=== PATIENT | male | born 1930 | race Caucasian/White ===

== ENCOUNTER 2016-06-02 19:08 | Emergency (ER) | payer OTHER ==
[~2016-06-02] VITALS: Ht 177.8 cm; Wt 70.9 kg
[~2016-06-02 19:08] MED LIST: ASPCH81 PO; GLUC10007 PO; PRAV20TA PO
[2016-06-02 19:11] VITALS: TEMP 36.5; Ht 177.8 cm; Wt 70.9 kg
--- NOTE | 2016-06-02 20:12 | EMERGENCY ROOM VISIT NOTE ---
History Report prepared by Henryibjeremías: Carmen Arrieta Under the Supervision of: Dr. Angelo Luo D.O. First contact with patient: 20:02 Chief Complaint: ABDOMINAL PAIN Stated Complaint: POSSIBLE HERNIA Nursing Triage Summary: Patient states "I had a hernia about 40 years ago and they put that mesh in it and it feels like the same thing." Patient has pain in right abdomen. History of Present Illness The patient is a 86 year old male who presents to the Emergency Room with complaints of persistent right lower quadrant abdominal pain that began about 2 hours ago. The pain radiates through the right inguinal region. The patient states that he was lifting a shovel full of coal when his pain began. He also noticed some swelling to the area. The patient has a history of a hernia repair about 30 years ago and notes that his current pain is in the same area. He states that his pain has improved significantly since it began. Denies chest pain, shortness of breath, nausea, vomiting, or other complaints. Source of History: patient Onset: 2 hours ago Position: abdomen (RLQ) Quality: other (feels like hernia) Timing: other (persistent) Associated Symptoms: No SOB, No chest pain, No nausea, No vomiting Review of Systems See HPI for pertinent positives & negatives. A total of 10 systems reviewed and were otherwise negative. Past Medical & Surgical Surgical Problems: (1) H/O hernia repair Family History No pertinent family history stated. Social History Smoking Status: Never Smoker Marital Status: Housing Status: lives with significant other Current/Historical Medications Scheduled Aspirin (Aspirin Tab-Chewable *), 81 MG PO DAILY Glucosamine Sulfate (Glucosamine), 1,500 DAILY Pravastatin (Pravachol ), 40 MG PO DAILY Physical Exam Vital Signs Date Time Temp Pulse Resp B/P Pulse Ox O2 Delivery O2 Flow Rate FiO2 06/02/16 21:46 68 16 134/71 98 Room Air 06/02/16 19:11 36.5 70 16 163/82 97 Room Air Physical Exam GENERAL: Patient is awake, alert, and in no acute distress. Patient is resting comfortably and showing no signs of anxiety EYES: The conjunctivae are clear. The pupils are round and reactive. EARS, NOSE, MOUTH AND THROAT: The nose is without any evidence of any deformity. Mucous membranes are moist tongue is midline NECK: The neck is nontender and supple. RESPIRATORY: Normal respiratory effort is noted there is no evidence of wheezing rhonchi or rales CARDIOVASCULAR: Regular rate and rhythm noted there no murmurs rubs or gallops normal S1 normal S2 GASTROINTESTINAL: The abdomen is soft. Bowel sounds are present in all quadrants. Abdomen is nontender. There was mild bulging in the right inguinal canal noted on standing but no incarcerated hernia noted. MUSCULOSKELETAL/EXTREMITIES: There is no evidence of gross deformity full range of motion is noted in the hips and shoulders SKIN: There is no obvious evidence of any rash. There are no petechiae, pallor or cyanosis noted. NEUROLOGIC: Patient is awake alert and oriented x3 strength is symmetric patellar reflexes are 2+ bilaterally Medical Decision & Procedures ER Provider Diagnostic Interpretation: CT results as stated below per my review and radiologist interpretation. CT SCAN OF THE ABDOMEN AND PELVIS WITHOUT CONTRAST CLINICAL HISTORY: Right groin pain. History of hernia. COMPARISON STUDY: No previous studies for comparison. TECHNIQUE: CT scan of the abdomen and pelvis was performed from the lung bases to the proximal femurs. Images are reviewed in the axial, sagittal, and coronal planes. IV contrast was not administered for this examination. CT DOSE: 435.40 mGy.cm FINDINGS: Lower chest: There is a hiatal hernia. There is a low-density structure within the right lateral aspect of the hernia. This either represents fluid, or a "tongue" of stomach. Liver: The unenhanced liver is normal in size, contour, and attenuation. There is no intrahepatic biliary ductal dilatation. Gallbladder: Unremarkable. Spleen: Normal in size and attenuation. Pancreas: Unremarkable. Adrenal glands: Unremarkable. Kidneys: There is a 2 mm nonobstructing left renal calculus. No right renal calculi are visualized. No ureteral or bladder calculi are visualized. Bowel: There are no transition zones indicate bowel obstruction. The appendix appears normal. There is extensive sigmoid diverticulosis. Mild wall thickening is felt to be secondary to peridiverticular muscular hypertrophy. There is no acute diverticulitis. Peritoneum: There are bilateral fat-containing inguinal hernias right larger than left Vasculature: The abdominal aorta is normal in course and caliber. Adenopathy: None. Pelvic viscera: The prostate is enlarged measuring 6.1 cm transversely. Skeletal structures: No destructive osseous lesions are seen. IMPRESSION: 1. Nonobstructing left renal calculus 2. No ureteral or bladder calculi identified 3. No evidence of bowel obstruction. No evidence of free air 4. Extensive sigmoid diverticulosis. No evidence of acute diverticulitis 5. Hiatal hernia 6. Prostatomegaly 7. Bilateral fat-containing inguinal hernias right larger than left Electronically signed by: Eren Jaffe M.D. 06/02/2016 8:53 PM Dictated Date/Time: 06/02/2016 8:46 PM Laboratory Results 06/02/16 20:30 Red Blood Count 4.54, Mean Corpuscular Volume 94.3, Mean Corpuscular Hemoglobin 32.8, Mean Corpuscular Hemoglobin Concent 34.8, Mean Platelet Volume 10.7, Neutrophils (%) (Auto) 81.7, Lymphocytes (%) (Auto) 11.0, Monocytes (%) (Auto) 6.8, Eosinophils (%) (Auto) 0.2, Basophils (%) (Auto) 0.1, Neutrophils # (Auto) 8.67, Lymphocytes # (Auto) 1.17, Monocytes # (Auto) 0.72, Eosinophils # (Auto) 0.02, Basophils # (Auto) 0.01 06/02/16 20:30 Test 06/02/16 20:30 White Blood Count 10.61 K/uL (4.8-10.8) Red Blood Count 4.54 M/uL (4.7-6.1) Hemoglobin 14.9 g/dL (14.0-18.0) Hematocrit 42.8 % (42-52) Mean Corpuscular Volume 94.3 fL (80-100) Mean Corpuscular Hemoglobin 32.8 pg (25-34) Mean Corpuscular Hemoglobin Concent 34.8 g/dl (32-36) Platelet Count 213 K/uL (130-400) Mean Platelet Volume 10.7 fL (7.4-10.4) Neutrophils (%) (Auto) 81.7 % Lymphocytes (%) (Auto) 11.0 % Monocytes (%) (Auto) 6.8 % Eosinophils (%) (Auto) 0.2 % Basophils (%) (Auto) 0.1 % Neutrophils # (Auto) 8.67 K/uL (1.4-6.5) Lymphocytes # (Auto) 1.17 K/uL (1.2-3.4) Monocytes # (Auto) 0.72 K/uL (0.11-0.59) Eosinophils # (Auto) 0.02 K/uL (0-0.5) Basophils # (Auto) 0.01 K/uL (0-0.2) RDW Standard Deviation 43.1 fL (36.4-46.3) RDW Coefficient of Variation 12.6 % (11.5-14.5) Immature Granulocyte % (Auto) 0.2 % Immature Granulocyte # (Auto) 0.02 K/uL (0.00-0.02) Urine Color YELLOW Urine Appearance CLEAR (CLEAR) Urine pH 5.0 (4.5-7.5) Urine Specific [place] 1.021 (1.000-1.030) Urine Protein NEG (NEG) Urine Glucose (UA) NEG (NEG) Urine Ketones 1+ (NEG) Urine Occult Blood NEG (NEG) Urine Nitrite NEG (NEG) Urine Bilirubin NEG (NEG) Urine Urobilinogen NEG (NEG) Urine Leukocyte Esterase NEG (NEG) Anion Gap 8.0 mmol/L (3-11) Est Creatinine Clear Calc Drug Dose 42.4 ml/min Estimated GFR () 58.1 Estimated GFR (Non- 50.1 BUN/Creatinine Ratio 12.4 (10-20) Calcium Level 8.8 mg/dl (8.5-10.1) Total Bilirubin 0.7 mg/dl (0.2-1) Direct Bilirubin 0.1 mg/dl (0-0.2) Aspartate Amino Transf (AST/SGOT) 19 U/L (15-37) Alanine Aminotransferase (ALT/SGPT) 21 U/L (12-78) Alkaline Phosphatase 67 U/L (45-117) Total Protein 7.8 gm/dl (6.4-8.2) Albumin 4.1 gm/dl (3.4-5.0) Lipase 165 U/L (73-393) Laboratory results per my review. ED Course 2005: The patient was evaluated in room B7. A complete history and physical examination were performed. 2144: Upon reevaluation, the patient is resting comfortably. I discussed the results and treatment plan with the patient. He verbalized agreement of the treatment plan. The patient was discharged home and will call Dr. Jung tomorrow. Medical Decision Prior records/ancillary studies reviewed. Triage Nursing notes reviewed. The patient's history was concerning for abdominal pain. Differential diagnosis: Etiologies such as appendicitis, diverticulitis, PUD, biliary pathology, UTI, pancreatitis, obstruction, mesenteric ischemia, aortic pathology, infections, inflammatory bowel disease, renal colic, as well as others were entertained. The patient is an 86-year-old male who presented to the emergency department for evaluation of right groin swelling. The patient had what appeared to be a sliding inguinal hernia. He has a history of surgery or per of this hernia approximately 30 years ago. The patient's CAT scan did not reveal any signs of incarcerated hernia or bowel in the hernia sac. I discussed the patient's laboratory and radiographic studies with him and his family members. He was given follow-up information for the general surgeon of his choice. He was encouraged to call the surgeon in the morning to schedule follow-up for point. He was also encouraged to rest and avoid any heavy lifting or strenuous. He was also encouraged to return to the emergency apartment immediately if symptoms change worsen or the need arises. Specifically if the hernia started to bulge and would not reduce or if he started noticing nausea vomiting high fever or redness over the hernia area. Impression Primary Impression: Right inguinal hernia Scribe Attestation The scribe's documentation has been prepared under my direction and personally reviewed by me in its entirety. I confirm that the note above accurately reflects all work, treatment, procedures, and medical decision making performed by me. Departure Information Dispostion Home / Self-Care Referrals Omero Last M.D. (PCP) Patient Instructions Hernia, My [facility] Additional Instructions Call the surgeon in the morning to schedule a follow-up appointment. Avoid any strenuous activity. Do not lift anything heavy. Return to the emergency Department immediately if symptoms change worsen or the need arises.
[2016-06-02 20:38] LABS: BASO % 0.1 %; BASO ABS # 0.01 K/uL (0-0.2); COMPLETE YES; EOS % 0.2 %; HEMATOCRIT 42.8 % (42-52); IG% 0.2 %; LYMPH ABS # 1.17 K/uL (1.2-3.4); MEAN CELL VOLUME 94.3 fL (80-100); MEAN CORPUSCULAR HEMOGLOBIN 32.8 pg (25-34); MEAN CORPUSCULAR HGB CONC 34.8 g/dl (32-36); MEAN PLATELET VOLUME 10.7 fL (7.4-10.4); MONO % 6.8 %; NEUT % 81.7 %; PLATELET COUNT 213 K/uL (130-400); RED BLOOD COUNT 4.54 M/uL (4.7-6.1); WHITE BLOOD COUNT 10.61 K/uL (4.8-10.8)
--- NOTE | 2016-06-02 20:54 | DIAGNOSTIC IMAGING REPORT ---
CT SCAN OF THE ABDOMEN AND PELVIS WITHOUT CONTRAST CLINICAL HISTORY: Right groin pain. History of hernia. COMPARISON STUDY: No previous studies for comparison. TECHNIQUE: CT scan of the abdomen and pelvis was performed from the lung bases to the proximal femurs. Images are reviewed in the axial, sagittal, and coronal planes. IV contrast was not administered for this examination. CT DOSE: 435.40 mGy.cm FINDINGS: Lower chest: There is a hiatal hernia. There is a low-density structure within the right lateral aspect of the hernia. This either represents fluid, or a "tongue" of stomach. Liver: The unenhanced liver is normal in size, contour, and attenuation. There is no intrahepatic biliary ductal dilatation. Gallbladder: Unremarkable. Spleen: Normal in size and attenuation. Pancreas: Unremarkable. Adrenal glands: Unremarkable. Kidneys: There is a 2 mm nonobstructing left renal calculus. No right renal calculi are visualized. No ureteral or bladder calculi are visualized. Bowel: There are no transition zones indicate bowel obstruction. The appendix appears normal. There is extensive sigmoid diverticulosis. Mild wall thickening is felt to be secondary to peridiverticular muscular hypertrophy. There is no acute diverticulitis. Peritoneum: There are bilateral fat-containing inguinal hernias right larger than left Vasculature: The abdominal aorta is normal in course and caliber. Adenopathy: None. Pelvic viscera: The prostate is enlarged measuring 6.1 cm transversely. Skeletal structures: No destructive osseous lesions are seen. IMPRESSION: 1. Nonobstructing left renal calculus 2. No ureteral or bladder calculi identified 3. No evidence of bowel obstruction. No evidence of free air 4. Extensive sigmoid diverticulosis. No evidence of acute diverticulitis 5. Hiatal hernia 6. Prostatomegaly 7. Bilateral fat-containing inguinal hernias right larger than left Electronically signed by: Eren Jaffe M.D. 06/02/2016 8:53 PM Dictated Date/Time: 06/02/2016 8:46 PM
[2016-06-02 21:03] LABS: URINE APPEARANCE CLEAR (CLEAR); URINE BILIRUBIN NEG (NEG); URINE COLOR YELLOW; URINE NITRITE NEG (NEG); URINE SPECIFIC GRAVITY 1.021 (1.000-1.030); UROBILINOGEN NEG (NEG)
[2016-06-02 21:06] LABS: BUN/CREATININE RATIO 12.4 (10-20); CALCIUM 8.8 mg/dl (8.5-10.1); CREATININE 1.3 mg/dl (0.60-1.40); POTASSIUM 4.4 mmol/L (3.5-5.1)
[2016-06-02 21:14] LABS: MANUAL MICROSCOPIC REQUIRED? NO; REVIEW REQ? NO
[2016-06-02 21:46] VITALS: BP 134/71; PULSE 68; O2SAT 98
[2016-07-15] MEDS ORDERED: TPRSR/25 PO (10:09)
[2016-07-15] MEDS ORDERED: CZR25 PO (10:09)
[2016-07-15] MEDS ORDERED: ATOR-22 PO (10:09)
[2016-07-29] MEDS ORDERED: HYDR-5688 PO (08:24)
== END 2016-06-02 22:11 | disposition home or self-care (01) ==
LOC: C.EDB 19:10
DX: K40.90 Unilateral inguinal hernia, without obstruction or gangrene, not specified as recurrent (principal); Z79.82 Long term (current) use of aspirin

== ENCOUNTER 2016-07-29 05:01 | Day surgery (SDC) | payer OTHER ==
[2016-07-15 10:10] VITALS: BMI 24.0
[~2016-07-29] VITALS: Ht 170.2 cm; Wt 70.9 kg
[~2016-07-29 05:01] MED LIST changes: +ATOR-22 PO; +CZR25 PO; -PRAV20TA PO; +TPRSR/25 PO
[2016-07-29 05:43] VITALS: BP 148/71; PULSE 71; TEMP 36.4; O2SAT 96; Ht 170.2 cm; Wt 70.9 kg
[2016-07-29] MEDS ORDERED: CEFAZOLIN 2000 MG/60 ML D5W IV SCH (06:00)
[2016-07-29] MEDS ORDERED: HEPARIN SOD 5000 UNIT/0.5 ML CARP SQ SCH (06:00)
[2016-07-29] MEDS ORDERED: LACTATED RINGER'S 1000ML 1,000 ML IV SCH (06:00)
[2016-07-29] MEDS ORDERED: LACTATED RINGER'S 1000ML 500 ML IV ONE (06:00)
[2016-07-29] MEDS ORDERED: BUPIVACAINE/EPINEPHRINE 0.5% MPF 1:200,000 30 ML VIAL ONE (06:41)
[2016-07-29] MEDS ORDERED: PROPOFOL IV EMULSION 10 MG/ML 20 ML VIAL IV ONE (06:50)
[2016-07-29] MEDS ORDERED: DEXAMETHASONE SOD INJ 4 MG/ML VIAL ONE (06:50)
[2016-07-29] MEDS ORDERED: FENTANYL CITRATE INJ 50 MCG/1 ML 2 ML VIAL ONE ×2 (06:50→08:09)
[2016-07-29] MEDS ORDERED: ONDANSETRON INJ 2 MG/ML 2 ML VIAL ONE (06:50)
[2016-07-29] MEDS ORDERED: LIDOCAINE HCL 2% 2 ML VIAL (20MG/ML) ONE (06:50)
[2016-07-29] MEDS ORDERED: MIDAZOLAM HCL 1 MG/ML 2ML VIAL ONE (06:50)
--- NOTE | 2016-07-29 06:57 | History and Physical ---
History & Physical Date Jul 29, 2016. Chief Complaint right inguinal hernia...symptomatic/recurrent History of Present Illness The patient is a 86 year old male with complaints of right groin pain after loading his coal stove...was seen in ER where it was reduced...no here for definitive tx Past Medical/Surgical History Surgical Problems: (1) H/O hernia repair Additional History Hepatic Disease: No Endocrine Disorder: No Kidney Disease: No Hypertension: Yes Heart Disease: Yes Bleeding Tendencies: No Infectious Diseases: No Allergies Coded Allergies: No Known Allergies (Unverified , 07/29/16) Home Medications Scheduled Aspirin (Aspirin Tab-Chewable *), 81 MG PO QAM Atorvastatin (Lipitor), 20 MG PO HS Glucosamine Sulfate (Glucosamine), 1,000 MG PO QAM Losartan Potassium (Losartan Potassium), 25 MG PO HS Metoprolol Succinate (Metoprolol Succinate ER), 12.5 MG PO QAM Physical Examination Skin: warm/dry Eyes: normal inspection, EOMI Head: normocephalic Neck: supple Respiratory/Chest: lungs clear, no respiratory distress Cardiovascular: regular rate, rhythm Abdomen / GI: + pertinent finding (large RIH...small LIH. penis/testicles normal. ) Diagnosis symptomatic large RIH. Plan of Treatment discussed risks/options. will proceed with open repair of RIH with mesh. discussed bleeding/infection/infection of mesh/dvt/pe/mi /injury to spermatic cord/chronic pain etc..answered questions. at his age and b/c it is completely asymptomatic we will forego repair of the small LIH.
[2016-07-29] MEDS ORDERED: FENTANYL CITRATE INJ 50 MCG/1 ML 2 ML VIAL IV PRN (07:30)
[2016-07-29] MEDS ORDERED: EpHEDrine SULFATE INJ 50 MG/ML AMP IV PRN (07:30)
[2016-07-29] MEDS ORDERED: ONDANSETRON INJ 2 MG/ML 2 ML VIAL IV PRN ×2 (07:30→08:45)
[2016-07-29] MEDS ORDERED: ATROPINE SULFATE 0.1 MG/ML 5ML SYR IV PRN (07:30)
[2016-07-29] MEDS ORDERED: ROCURONIUM BROMIDE 10 MG/ML 5 ML VIAL ONE (07:32)
[2016-07-29] MEDS ORDERED: NEOSTIGMINE METHYLSULFATE 5 MG/5 ML SYR ONE (07:32)
[2016-07-29] MEDS ORDERED: GLYCOPYRROLATE INJ 0.2 MG/ML VIAL ONE (07:32)
[2016-07-29] MEDS ORDERED: HYDR-5688 PO (08:24)
[2016-07-29] MEDS ORDERED: SODIUM CHLORIDE 0.9% 1000ML 1,000 ML IV SCH (08:41)
--- NOTE | 2016-07-29 08:43 | Discharge Instructions ---
Discharge Instructions Date of Service Jul 29, 2016. Admission Reason for Admission: Recurrent Right Inguinal Hernia Discharge Discharge Diagnosis / Problem: direct and indirect right inguinal hernia Discharge Goals Goal(s): Decrease discomfort, Prevent Disease Progression Activity Recommendations Activity Limitations: as noted below Lifting Limitations: no more than 10 pounds Exercise/Sports Limitations: until after follow-up appointment Shower/Bathe: tomorrow . Instructions / Follow-Up Instructions [facility] [phone] for a follow up appointment with Dr. Rodriguez in1-2 weeks or if you have any problems or questions. Current Hospital Diet Patient's current hospital diet: Discharge Diet Recommended Diet: Regular Diet Procedures Procedures Performed: Open Recurrent Right Inguinal Hernia Repair with Mesh Pending Studies Studies pending at discharge: no Medical Emergencies . Who to Call and When: Medical Emergencies: If at any time you feel your situation is an emergency, please call 911 immediately. . Non-Emergent Contact Non-Emergency issues call your: Primary Care Provider, Surgeon Call Non-Emergent contact if: temperature is above 101, wound has increased drainage, wound has increased redness, wound has increased pain . "Provider Documentation" section prepared by Jimmy Rodriguez. VTE Core Measure Inpt VTE Proph given/why not?: SCD's
[2016-07-29] MEDS ORDERED: HYDROCODONE/ACETAMOPHEN 5/325MG TAB PO PRN ×2 (08:45)
[2016-07-29] MEDS ORDERED: IBUPROFEN 600 MG TAB PO PRN (08:45)
--- NOTE | 2016-07-29 08:46 | [facility] Operative Report ---
Operative Report Operative Date Jul 29, 2016. Pre-Operative Diagnosis Recurrent Right Inguinal Hernia Post-Operative Diagnosis direct and indirect right inguinal hernia Procedure(s) Performed open repair of recurrent right inguinal hernia with plug/patch mesh Surgeon Michael Estimated Blood Loss 10ML Findings large direct and indirect right inguinal hernia. tenuous blood supply to right testicle. Specimens None per surgeon Anesthesia get Complication(s) None Disposition Recovery Room / PACU I attest to the content of the Intraoperative Record and any orders documented therein. Any exceptions are noted below.
--- NOTE | 2016-07-29 09:05 | OPERATIVE REPORT ---
DATE OF OPERATION: 07/29/2016 PREOPERATIVE DIAGNOSIS: Recurrent right inguinal hernia. POSTOPERATIVE DIAGNOSIS: Large direct and indirect recurrent right inguinal hernia. PROCEDURES: Open repair of recurrent right inguinal hernia with plug and patch mesh. SURGEON: Dr. Rodriguez. ESTIMATED BLOOD LOSS: Approximately 10 mL. COMPLICATIONS: No immediate. ANESTHESIA: General. The patient tolerated the procedure well. OPERATION AND FINDINGS: OPERATIVE NOTE: After informed consent was obtained, the patient was taken to the operating suite and placed in supine position. After successful intubation a Elliott catheter was placed and the right groin was shaved and sterilely prepped and draped in usual fashion. I made an inguinal incision several centimeters above his previous incision to try to get some virgin anatomy to work with. We carried this down through the soft tissue using electrocautery. The external oblique aponeurosis was identified and skeletonized. A small incision was made with a fresh 15 blade and Metzenbaum scissors used to extend this down through the external ring as well as for several centimeters proximally. Once in the inguinal canal the patient had evidence of a previous open repair without mesh. It appeared to be a shouldice type of repair. I was able to find the old sutures and open them to basically undue there prior repair. There was some scarring, but I was able to readily identify the anatomy. We were able to separate the cord and cord structures from surrounding tissue using primarily blunt dissection. Once I had delineated this, I was able to gently pick the cord and cord structures off the pubic bone using a blunt finger. A [place] drain was placed around them to help manipulate and identify them. Once we did this, we noticed a rather large direct defect with some bowel trying to incarcerate. It was readily reducible. We then inspected the cord and cord structures. Using small amounts of electrocautery and again primarily blunt dissection, we were able to identify a rather large chronic indirect sac. We were able to skeletonize it back to its neck and then readily dunk it back into the abdominal cavity without difficulty. It stayed reduced. Because of the large defect, I opted to use a plug and patch technique. I will note that after reducing this the cord and cord structures were rather scant. Mildly concerned about rather tenuous blood supply to the testicle nonetheless really not much could be done about it. I was able to palpate the cord and cord structures and was able to feel a pulse in the cord structures, although was rather faint. We did place a polypropylene plug into the large defect and secured it to surrounding musculature using 0 Ethibond. We then used a mendez holed polypropylene mesh as an onlay. We secured it distally to Kavin's ligament, laterally along the shelving portion of Poupart's ligament and medially along the midline musculature. The "arms" of the mesh were wrapped around behind the cord structures and secured to underlying muscle as well. There was no impingement on the cord structures. We did thoroughly irrigate the cavity. There was adequate hemostasis. I did use some Marcaine around the edges of the mesh for postoperative analgesia. At the end of the procedure, there was adequate hemostasis. We then closed the external oblique aponeurosis with 2-0 Vicryl in a running fashion. Soft tissue was irrigated and skin was irrigated and the wound was closed using 3-0 Vicryl and 4-0 Monocryl. Some additional Marcaine was injected around the skin for postoperative analgesia and skin glue used as a dressing. The patient was then extubated and transferred to recovery in stable condition. I attest to the content of the Intraoperative Record and any orders documented therein. Any exceptio ns are noted below.
[2016-07-29 09:25] VITALS: BP 112/56; PULSE 67; TEMP 36.4; O2SAT 99
[2016-07-29 09:55] VITALS: BP 106/52; PULSE 57; O2SAT 95
--- NOTE | 2016-07-29 10:17 | Anesthesiology Progress Note ---
Anesthesia Post Op Note Date & Time Jul 29, 2016 at 10:17 Vital Signs Pain Intensity: 0 Vital Signs Past 12 Hours Date Time Temp Pulse Resp B/P Pulse Ox O2 Delivery O2 Flow Rate FiO2 07/29/16 09:55 57 20 106/52 95 Room Air 07/29/16 09:25 36.4 67 18 112/56 99 Room Air 07/29/16 09:10 36.7 63 18 125/63 97 Nasal Cannula 3 07/29/16 09:00 68 18 124/65 100 Nasal Cannula 3 07/29/16 08:50 67 18 122/62 100 Mask 10 07/29/16 08:40 69 16 127/60 98 Mask 10 07/29/16 08:37 36.8 70 16 128/60 98 Mask 10 07/29/16 05:43 36.4 71 18 148/71 96 Room Air Notes Mental Status: alert / awake / arousable, participated in evaluation Pt Amnestic to Procedure: Yes Nausea / Vomiting: adequately controlled Pain: adequately controlled Airway Patency, RR, SpO2: stable & adequate BP & HR: stable & adequate Hydration State: stable & adequate Anesthetic Complications: no major complications apparent
[2016-07-29 10:25] VITALS: BP 109/54; PULSE 59; TEMP 36.4; O2SAT 96
== END 2016-07-29 10:45 | disposition home or self-care (01) ==
LOC: C.ACU 05:01
PROVIDERS: ATTEND Surgery
DX: K40.91 Unilateral inguinal hernia, without obstruction or gangrene, recurrent (principal); Z98.890 Other specified postprocedural states

== ENCOUNTER 2017-03-28 14:15 | Emergency (ER) | payer OTHER ==
[~2017-03-28] VITALS: Ht 172.7 cm; Wt 65.0 kg
[2017-03-28 14:19] VITALS: TEMP 36.3; Ht 172.7 cm; Wt 65.0 kg
[2017-03-28] MEDS ORDERED: ASPCH81X PO (15:21)
[2017-03-28 15:25] LABS: BASO % 0.2 %; BASO ABS # 0.02 K/uL (0-0.2); COMPLETE YES; EOS % 2.8 %; HEMATOCRIT 46.9 % (42-52); IG% 0.3 %; LYMPH % 14.9 %; LYMPH ABS # 1.31 K/uL (1.2-3.4); MEAN CELL VOLUME 95.9 fL (80-100); MEAN CORPUSCULAR HEMOGLOBIN 32.3 pg (25-34); MEAN CORPUSCULAR HGB CONC 33.7 g/dl (32-36); MEAN PLATELET VOLUME 10.2 fL (7.4-10.4); MONO % 9.7 %; NEUT % 72.1 %; PLATELET COUNT 239 K/uL (130-400); RED BLOOD COUNT 4.89 M/uL (4.7-6.1)
[2017-03-28 15:42] LABS: CALCIUM 8.7 mg/dl (8.5-10.1); CREATININE 1.28 mg/dl (0.60-1.40); POTASSIUM 4.2 mmol/L (3.5-5.1)
--- NOTE | 2017-03-28 16:14 | EMERGENCY ROOM VISIT NOTE ---
ED Visit Note First contact with patient: 14:43 CHIEF COMPLAINT: Rash HISTORY OF PRESENT ILLNESS: This 86-year-old male patient presents to the emergency department, ambulatory, with his and daughter, complaining of a rash on the bilateral lower extremities, and radiating up towards the back which started one month ago. The patient states he has seen his PCP twice now, the first time he saw the physician office clerk assistant, and has been on 2 rounds of prednisone. The patient states the prednisone has not helped his symptoms. He states the last time, he was started on a different medication, but does not recall what medication that was. He states this was discontinued approximately one week ago. The patient states the rash is itchy, but is otherwise not bothersome. There has been no pain or drainage. The rash did begin on the posterior bilateral lower extremities, and over the past week has been radiating upward, towards the back. The patient has tried all kinds of OTC creams and treatments, and states Vaseline is the only thing that significantly helps. There has been a 10 pound weight loss over the past 1 month, the patient 's daughter is concerned about cancer. The patient denies any erythema migrans rash, but his daughter would like him to be tested for Lyme disease. The patient denies fever, chills, nausea, or loss of appetite. They deny any URI symptoms. No change in food, soap, detergents, or other environmental factors. No new medications. No weakness or numbness. REVIEW OF SYSTEMS: A 6 system review of systems was completed with positives and pertinent negatives listed in the HPI. ALLERGIES: None MEDICATIONS: Aspirin, Lipitor, glucosamine, losartan, metoprolol PMH: Hyperlipidemia, heart disease, hypertension SOCIAL HISTORY: The patient lives locally with family. He denies drug, alcohol , tobacco use. PHYSICAL EXAM: Vital Signs: Reviewed Nurse's notes, vital signs stable. GENERAL : This is an 86-year-old white male, in no acute distress, well-developed, well- nourished. SKIN: There is a papular rash on the posterior lower extremities radiating from the knees up to the middle of the back. This does evette with pressure and there is minimal erythema. No pustules. Capillary refill less than 2 seconds. HEAD: Normocephalic atraumatic. EARS: External auditory canals clear, tympanic membranes pearly corrales without erythema or effusion bilaterally. EYES: Pupils equal round and reactive to light and accommodation. Conjunctivae without injection, sclerae without icterus. Extraocular movements intact. NOSE: Patent, turbinates without inflammation or discharge. No sinus tenderness. MOUTH: Mucous membranes moist. Tonsils are not enlarged. Pharynx without erythema or exudate. Uvula midline. Airway patent. Tongue does not deviate. NECK: Supple without nuchal rigidity. No lymphadenopathy. No thyromegaly. Cervical spine is nontender. No JVD. HEART: Regular rate and rhythm without murmurs gallops or rubs. LUNGS: Clear to auscultation bilaterally without wheezes, rales or rhonchi. No dullness to percussion. No retractions or accessory muscle use. EMERGENCY DEPARTMENT COURSE: The patient was seen and evaluated as above. The patient's daughter was very concerned for cancer, Lyme disease, and wanted the patient have a complete workup. I discussed with her that I'm happy to order basic labs and Lyme disease studies at this time. These tests were ordered, did not reveal any abnormalities. CBC, PRP, and Lyme disease testing were all negative. The patient does have an appointment scheduled with his PCP for 2 days from now, and is established with [facility] dermatology. I encouraged patient to call the retail beauty specialist to see if he can get an appointment scheduled for the next 1-2 weeks. He states he will try. I did offer hydroxyzine to help with the itchiness, but the patient declines, and states he will try Benadryl or OTC Benadryl topical spray or cream. The case was discussed with Dr. Beyer who is in agreement with the assessment and plan. Discharge instructions were reviewed with the patient and his family at bedside. The patient was discharged home in good condition. I attest that I have personally reviewed the patient's current medication list. Patient was found to have normal blood pressure on screening and does not require follow-up. DIFFERENTIAL DIAGNOSIS: Dermatitis, Lyme disease, malignancy, hepatic disease, viral exanthem, scabies, bed bugs, candidiasis, and others DIAGNOSIS: Dermatitis Problem List Surgical Problems: (1) H/O hernia repair Status: Resolved Current/Historical Medications Scheduled Aspirin (Aspirin Chewable), 81 MG PO DAILY Atorvastatin (Lipitor), 20 MG PO HS Glucosamine Sulfate (Glucosamine), 1,000 MG PO QAM Losartan Potassium (Losartan Potassium), 25 MG PO HS Metoprolol Succinate (Metoprolol Succinate ER), 12.5 MG PO QAM Allergies Coded Allergies: No Known Allergies (Unverified , 03/28/17) Vital Signs Date Time Temp Pulse Resp B/P (MAP) Pulse Ox O2 Delivery O2 Flow Rate FiO2 03/28/17 16:35 75 18 106/67 99 Room Air 03/28/17 15:44 81 18 124/80 98 Room Air 03/28/17 14:19 36.3 107 16 116/77 96 Room Air Laboratory Results 03/28/17 15:09 Red Blood Count 4.89, Mean Corpuscular Volume 95.9, Mean Corpuscular Hemoglobin 32.3, Mean Corpuscular Hemoglobin Concent 33.7, Mean Platelet Volume 10.2, Neutrophils (%) (Auto) 72.1, Lymphocytes (%) (Auto) 14.9, Monocytes (%) (Auto) 9.7, Eosinophils (%) (Auto) 2.8, Basophils (%) (Auto) 0.2, Neutrophils # (Auto) 6.34, Lymphocytes # (Auto) 1.31, Monocytes # (Auto) 0.85, Eosinophils # (Auto) 0.25, Basophils # (Auto) 0.02 03/28/17 15:09 Test 03/28/17 15:09 White Blood Count 8.80 K/uL (4.8-10.8) Red Blood Count 4.89 M/uL (4.7-6.1) Hemoglobin 15.8 g/dL (14.0-18.0) Hematocrit 46.9 % (42-52) Mean Corpuscular Volume 95.9 fL (80-100) Mean Corpuscular Hemoglobin 32.3 pg (25-34) Mean Corpuscular Hemoglobin Concent 33.7 g/dl (32-36) Platelet Count 239 K/uL (130-400) Mean Platelet Volume 10.2 fL (7.4-10.4) Neutrophils (%) (Auto) 72.1 % Lymphocytes (%) (Auto) 14.9 % Monocytes (%) (Auto) 9.7 % Eosinophils (%) (Auto) 2.8 % Basophils (%) (Auto) 0.2 % Neutrophils # (Auto) 6.34 K/uL (1.4-6.5) Lymphocytes # (Auto) 1.31 K/uL (1.2-3.4) Monocytes # (Auto) 0.85 K/uL (0.11-0.59) Eosinophils # (Auto) 0.25 K/uL (0-0.5) Basophils # (Auto) 0.02 K/uL (0-0.2) RDW Standard Deviation 44.0 fL (36.4-46.3) RDW Coefficient of Variation 12.7 % (11.5-14.5) Immature Granulocyte % (Auto) 0.3 % Immature Granulocyte # (Auto) 0.03 K/uL (0.00-0.02) Erythrocyte Sedimentation Rate 8 mm/hr (0-14) Anion Gap 8.0 mmol/L (3-11) Est Creatinine Clear Calc Drug Dose 39.5 ml/min Estimated GFR () 59.2 Estimated GFR (Non- 51.1 BUN/Creatinine Ratio 14.0 (10-20) Calcium Level 8.7 mg/dl (8.5-10.1) Total Bilirubin 0.5 mg/dl (0.2-1) Aspartate Amino Transf (AST/SGOT) 20 U/L (15-37) Alanine Aminotransferase (ALT/SGPT) 24 U/L (12-78) Alkaline Phosphatase 59 U/L (45-117) Total Protein 7.5 gm/dl (6.4-8.2) Albumin 3.8 gm/dl (3.4-5.0) Globulin 3.7 gm/dl (2.5-4.0) Albumin/Globulin Ratio 1.0 (0.9-2) Lyme Disease IgG Antibody NEG (NEG) Lyme Disease IgM Antibody NEG (NEG) Departure Information Impression Primary Impression: Rash and nonspecific skin eruption Dispostion Home / Self-Care Condition GOOD Referrals Omero Last M.D. (PCP) Cara Alvarez M.D. Patient Instructions ED Dermatitis Non Specific Rash, My [facility] Additional Instructions You were seen in the emergency department today for a nonspecific skin rash. Labs did not reveal any acute infection, renal or hepatic abnormality, or joint abnormality. Lyme disease testing was negative. As discussed, I do recommend conservative treatment at this time, as you have been on steroids twice in the past month without relief of the symptoms. I do encourage you to follow-up with dermatology in the next week for further evaluation and management. Please follow up with your PCP at your regularly scheduled appointment in 2 days for recheck. You may use Benadryl or Benadryl cream to help with the itchiness. Return to the emergency department for worsening pain, fever, chills, or other concerning symptoms.
[2017-03-28 16:26] LABS: LYME DISEASE AB IGG NEG (NEG); LYME DISEASE AB IGM NEG (NEG)
[2017-03-28 16:35] VITALS: BP 106/67; PULSE 75; O2SAT 99
== END 2017-03-28 16:38 | disposition home or self-care (01) ==
LOC: C.EDB 14:16 → C.EDD 16:38
DX: R21 Rash and other nonspecific skin eruption (principal); I10 Essential (primary) hypertension; E78.5 Hyperlipidemia, unspecified; I51.9 Heart disease, unspecified; Z79.82 Long term (current) use of aspirin; Z79.899 Other long term (current) drug therapy

== ENCOUNTER 2019-11-25 13:18 | Inpatient (IN) ==
[2019-11-25] MEDS ORDERED: MoRPHine SULFATE 4 MG/ML 1 ML CARP\\VIAL IV STA (15:06)
--- NOTE | 2019-11-25 15:12 | Emergency Department Note ---
Impression & Plan SBO (small bowel obstruction), Incarcerated right inguinal hernia, Nausea ED Provider Note NAME: BHAVESH DOWD AGE: 89 SEX: M : 1930 ARRIVES VIA: Walk-In INFORMANT: [Patient][son] ED PROVIDER(S): [Ariel Adorno MD] CHIEF COMPLAINT: Possible hernia HISTORY OF PRESENT ILLNESS: The patient is an 89-year-old male presents to the ER with about 17 hours of symptoms. The patient states that yesterday evening, he noticed increased pain in the area of the right groin. He has had a small hernia in this area for some time but the area seemed larger and more painful yesterday. He rates the pain as a 2/10. The pain is constant and nothing makes the pain better or worse. The patient states that he has had no appetite but no vomiting. No real upper abdominal pain. He has not had urinary complaints. There has been no fall or trauma. No fever, chills, cough or congestion. The patient is concerned that the hernia worsened, he is concerned about a bowel blockage. He is here with his son. REVIEW OF SYSTEMS: See HPI for pertinent positives and negatives. A total of ten systems were reviewed and were otherwise negative. PMHx/PSHx: See Below SOCIAL HISTORY: See Below. PHYSICAL EXAM: GENERAL: Patient is in no acute distress. Thin and frail. HEENT: No acute trauma, normocephalic atraumatic, mucous membranes moist, no nasal congestion, no scleral icterus. NECK: No stridor, no adenopathy, no meningismus, trachea is midline. LUNGS: Clear to auscultation bilaterally, no wheeze, no rhonchi, breath sounds equal. HEART: Without murmurs gallops or rubs, regular rate and rhythm. ABDOMEN: Soft, nontender, bowel sounds positive, there is a 4 to 5 cm right inguinal mass which could be consistent with a hernia-the lesion is quite mobile , the area is tender, there is no erythema. The lesion is not reducible. No peritonitis. EXTREMITIES: No cyanosis or edema, full range of motion of all the joints without pain or difficulty, no signs for acute trauma. NEUROLOGIC: Oriented x 3, no acute motor or sensory deficits, no focal weakness. SKIN: No rash, no jaundice, no diaphoresis. DIFFERENTIAL DIAGNOSIS: Incarcerated hernia, appendicitis, bowel blockage, diverticulitis, UTI, obstruction, mesenteric ischemia, aortic pathology, inflammatory bowel disease, renal colic, PUD, pancreatitis, biliary pathology, hernia, volvulus, constipation, as well as other pathologies. EMERGENCY DEPARTMENT COURSE/PROCEDURES: MEDICAL DECISION MAKING: There is a mild leukocytosis, this could be consistent with infection or the stress of his current situation. No concerning anemia. There is a normal platelet count. No significant electrolyte abnormality or kidney failure. No worrisome liver enzyme elevation. No evidence for pancreatitis. Chest film do es not show free air or CHF. There was no pneumonia. Abdominal and pelvis CT shows a small bowel obstruction secondary to a right inguinal hernia. On exam, the patient did have a right inguinal hernia which seemed incarcerated. He was in no distress, he was not febrile. There was no peritonitis. Patient received IV saline, he was given a 500 cc bolus. He was ordered for IV morphine for pain. He received IV Zofran for nausea. The patient is currently resting comfortably. I have ordered for an NG tube to low intermittent suction. I did discuss the findings with the patient and his son. I spoke with case management. The on-call surgeon has been consulted. Past Med/Surg History Medical History Coronary artery disease (Chronic) History of aortic stenosis (Chronic) HTN (hypertension) (Chronic) Hyperlipidemia LDL goal <70 (Chronic) Parkinsons disease (Chronic) Surgical History H/O aortic valve replacement (Inactive) H/O hernia repair (Inactive) S/P aortic aneurysm repair S/P CABG x 1 (Inactive) S/P hernia repair Family History Brother Hypertension Parkinson disease Social History Smoking Status: Never smoker Hx Alcohol Use: No Hx Substance Use: No Preferred Language: [place] Communication Ability: Effective Visual Impairment: No Limitations Hearing Ability: Normal Beliefs That Will Affect Care: None marital status: Current Living Situation: Spouse current occupational status: retired Feels Safe at Home: Yes Childhood Exposure to Second-Hand Smoke: No Diet Comment: regular caffeine: Yes during the past year weight has: decreased > 10 lbs Dental Care, Regularly: No Physical Activity Frequency: 3-4 Times per Week Physical Activity Frequency Comment: walk Seatbelt Use: always Sunscreen Use: No (does not go out in the sun) Allergies Allergies Allergy/AdvReac Type Severity Reaction Status Date / Time No Known Allergies Allergy Verified 11/25/19 15:35 Home Meds Home Medications Medication Instructions Recorded Confirmed aspirin 81 mg tablet,delayed 81 mg PO DAILY 02/16/19 11/25/19 release atorvastatin 20 mg tablet 20 mg PO DAILY 02/16/19 11/25/19 losartan 25 mg tablet 25 mg PO DAILY 02/16/19 11/25/19 metoprolol succinate 25 mg 12.5 mg PO DAILY tab 02/16/19 11/25/19 tablet,extended release 24 hr Results & Data (ED) Vital Signs Vital Signs - 24 hr 11/25/19 13:26 11/25/19 15:33 11/25/19 16:00 Temperature 36.8 C Temperature Source Oral Pulse Rate 94 H 76 Pulse Rate [Apical] 78 Pulse Rate from SpO2 Sensor 218 H Respiratory Rate 16 12 19 Respiratory Effort / Characteristics Non-Labored Spontaneous Respiratory Depth Normal Respiratory Pattern Regular Blood Pressure 138/87 128/74 Blood Pressure [Left Arm] 137/80 Blood Pressure Mean 104 96 Blood Pressure Mean [Left Arm] 99 Blood Pressure Position Sitting Pulse Oximetry 97 95 94 Oxygen Delivery Method Room Air Room Air Room Air Sepsis Recent Fever Within 48 Hours No Sepsis New/Unexplained Change in Mental Status No Sepsis Action Taken by Nursing No Action Required 11/25/19 17:00 Temperature Temperature Source Pulse Rate Pulse Rate [Apical] 72 Pulse Rate from SpO2 Sensor Respiratory Rate 12 Respiratory Effort / Characteristics Respiratory Depth Respiratory Pattern Blood Pressure Blood Pressure [Left Arm] 118/72 Blood Pressure Mean Blood Pressure Mean [Left Arm] 87 Blood Pressure Position Pulse Oximetry 12 L Oxygen Delivery Method Sepsis Recent Fever Within 48 Hours Sepsis New/Unexplained Change in Mental Status Sepsis Action Taken by Long Term Medications Current Medication List: was personally reviewed by me Laboratory Data Attestation: I reviewed the patient's lab results. Result diagrams: 11/25/19 15:25 11/25/19 15:25 Lab Results 11/25/19 11/25/19 Range/Units 15:25 15:25 WBC 11.00 H (4.8-10.8) K/uL RBC 4.75 (4.7-6.1) M/uL Hgb 15.7 (14.0-18.0) g/dL Hct 45.5 (42-52) % MCV 95.8 (80-100) fL MCH 33.1 (25-34) pg MCHC 34.5 (32-36) g/dL RDW Std Deviation 45.0 (36.4-46.3) fL RDW Coeff of Alisson 13.0 (11.5-14.5) % Plt Count 239 (130-400) K/uL MPV 10.1 (7.4-10.4) fL Immature Gran % (Auto) 0.2 % Neut % (Auto) 87.8 % Lymph % (Auto) 7.8 % Mcintosh % (Auto) 4.1 % Eos % (Auto) 0.0 % Baso % (Auto) 0.1 % Neut # (Auto) 9.66 H (1.4-6.5) K/uL Lymph # (Auto) 0.86 L (1.2-3.4) K/uL Mcintosh # (Auto) 0.45 (0.11-0.59) K/uL Eos # (Auto) 0.00 (0-0.5) K/uL Baso # (Auto) 0.01 (0-0.2) K/uL Immature Gran # (Auto) 0.02 (0.00-0.02) K/uL Sodium 134 L (136-145) mmol/L Potassium 4.4 (3.5-5.1) mmol/L Chloride 97 L (98-107) mmol/L Carbon Dioxide 28 (21-32) mmol/L Anion Gap 9.0 (3-11) BUN 20 H (7-18) mg/dl Creatinine 1.03 (0.6-1.4) mg/dl Est Cr Clr Drug Dosing 37.4 ml/min Est GFR ( Amer) 75.3 Est GFR (Non-Af Amer) 65.0 BUN/Creatinine Ratio 19.3 (10-20) Glucose 105 H (70-99) mg/dl Calcium 9.1 (8.5-10.1) mg/dl Total Bilirubin 1.1 H (0.2-1) mg/dl AST 15 (15-37) U/L ALT 18 (12-78) U/L Alkaline Phosphatase 52 (45-117) U/L Total Protein 7.8 (6.4-8.2) gm/dl Albumin 4.3 (3.4-5.0) gm/dl Globulin 3.5 (2.5-4.0) gm/dl Albumin/Globulin Ratio 1.2 (0.9-2) Lipase 76 (73-393) U/L Administered Medications Ioversol (Optiray 320 100ml) 93 ml IV ONCE PRN PRN Reason: Interaction Checking Stop: 11/29/19 16:09 Last Admin: 11/25/19 16:10 Dose: 93 ml Documented by: [id number] Discontinued Medications Sodium Chloride (Nss) 500 mls @ 999 mls/hr IV .Q31M TJ Stop: 11/25/19 15:45 Last Infusion: 11/25/19 15:59 Dose: 0 mls/hr Documented by: [id number] Admin: 11/25/19 15:28 Dose: 999 mls/hr Documented by: [id number] Morphine Sulfate (Morphine Sulfate) 4 mg IV NOW STA Stop: 11/25/19 15:07 Last Admin: 11/25/19 15:29 Dose: 4 mg Documented by: [id number] Imaging Data Radiologist's Impression: SINGLE VIEW CHEST CLINICAL HISTORY: Generalized abdominal pain. FINDINGS: An AP, portable, upright chest radiograph is obtained. No prior studies are available for comparison at the time of dictation. The examination is degraded by portable technique and patient rotation. The patient is status post midline sternotomy and cardiac valve surgery. The heart is top normal for projection noting atherosclerotic calcification of the thoracic aorta. The pulmonary vasculature is noncongested. Scarring/atelectasis is seen at both lung bases. No airspace consolidation or large pleural effusion is identified. No pneumothorax is seen. The skeletal structures are osteopenic. The bony thorax is grossly intact. IMPRESSION: No active disease in the chest. CT SCAN OF THE ABDOMEN AND PELVIS WITH IV CONTRAST CLINICAL HISTORY: Right groin swelling. COMPARISON STUDY: Abdominal CT dated 06/02/2016. TECHNIQUE: Following the IV administration of 93 cc of Optiray 320, CT scan of the abdomen and pelvis is performed from the lung bases to the proximal femora. Images are reviewed in the axial, sagittal, and coronal planes. IV contrast was administered without complication. A dose lowering technique was utilized adhering to the principles of ALARA. CT DOSE: 284.39 mGy.cm FINDINGS: Lung bases: The patient is status post midline sternotomy. The heart is mildly enlarged and without pericardial effusion. There is evidence of previous mitral valve surgery. The coronary arteries are densely calcified. The lung bases are clear noting dependent atelectasis. Liver: The contrast-enhanced liver is normal in size, contour, and attenuation. There is no intrahepatic biliary ductal dilatation. The hepatic veins and portal veins are patent. Gallbladder: Unremarkable. Spleen: Normal in size and attenuation. Pancreas: Mildly atrophic and grossly unremarkable. Adrenal glands: There is nodular thickening of the adrenal glands which is similar to previous. Kidneys: The contrast enhanced kidneys demonstrate cortical atrophy and are without hydronephrosis. The kidneys enhance symmetrically. There is a 4 mm nonobstructing calculus in the upper pole of the left kidney. Abdominal vasculature: There is advanced atherosclerotic calcification and ectasia of the abdominal aorta. Bowel: The stomach and proximal small bowel loops are distended and fluid- filled. Small bowel loops measure up to 2.6 cm in diameter. The obstruction is caused by an incarcerated fluid and small bowel containing right inguinal hernia. The distal small bowel and colon are decompressed. There is no pneumatosis intestinalis or portal venous gas. There is advanced colonic diverticulosis without CT evidence of acute diverticulitis. A duodenal divertic ulum is incidentally noted. The appendix is well-visualized and normal. Peritoneum: There is trace abdominopelvic ascites. No intraperitoneal free air is seen. Lymphadenopathy: None. Pelvic viscera: The prostate gland is enlarged and heterogeneous measuring 6 cm in transverse diameter. Although decompressed, the bladder wall appears thickened and trabeculated suggesting chronic outlet obstruction. There is a bowel containing right inguinal hernia. Skeletal structures: The skeletal structures are osteopenic. There is moderate to advanced lumbosacral spondylosis. No lytic or blastic lesions are seen. Soft tissues: The patient is cachectic. IMPRESSION: 1. Findings are consistent with a small bowel obstruction secondary to an incarcerated right inguinal hernia. 2. No intraperitoneal free air is seen. There is no pneumatosis intestinalis or portal venous gas. 3. Trace abdominopelvic ascites. 4. Advanced colonic diverticulosis without CT evidence of acute diverticulitis. 5. Left-sided nephrolithiasis. 6. Additional findings as above. Blood Pressure Blood Pressure Findings: Elevated blood pressure Blood Pressure Disposition: further management by hospitalist Discharge Plan Visit Data Chief Complaint: GI Assessment Stated Complaint: PAIN BELOW BELLY BUTTON, HARD TIME MAKING BM ED Provider: Ariel Adorno Discharge Problem: SBO (small bowel obstruction), Incarcerated right inguinal hernia, Nausea Patient Disposition: Being Evaluated by Surgeon Condition: Good Forms Stand Alone Forms: [facility] [place] Prescriptions Prescriptions: No Action aspirin 81 mg tablet,delayed release (DR/EC) 81 mg PO DAILY RF: 0 atorvastatin 20 mg tablet 20 mg PO DAILY RF: 0 losartan 25 mg tablet 25 mg PO DAILY RF: 0 metoprolol succinate 25 mg tablet extended release 24 hr 12.5 mg PO DAILY RF: 0 Referrals Referrals: Fabio Melara MD [Primary Care Provider] -
[2019-11-25] MEDS ORDERED: SODIUM CHLORIDE 0.9% 500 ML IV SCH (15:15)
[2019-11-25 15:42] LABS: Basophils # (auto) 0.01 K/uL (0-0.2); Basophils % (auto) 0.1 %; Hematocrit (blood only) 45.5 % (42-52); Hemoglobin 15.7 g/dL (14.0-18.0); Immature Granulocytes # (auto) 0.02 K/uL (0.00-0.02); Immature Granulocytes % (auto) 0.2 %; Lymphocytes # (auto) 0.86 K/uL (1.2-3.4); Lymphocytes % (auto) 7.8 %; Mean Corpuscular Hemoglobin 33.1 pg (25-34); Mean Corpuscular Hgb Conc 34.5 g/dL (32-36); Mean Corpuscular Volume 95.8 fL (80-100); Mean Platelet Volume 10.1 fL (7.4-10.4); Monocytes # (auto) 0.45 K/uL (0.11-0.59); Monocytes % (auto) 4.1 %; Neutrophils # (auto) 9.66 K/uL (1.4-6.5); Neutrophils % (auto) 87.8 %; Platelet Count 239 K/uL (130-400); Red Blood Count 4.75 M/uL (4.7-6.1)
--- NOTE | 2019-11-25 15:55 | XRay Report ---
SINGLE VIEW CHEST CLINICAL HISTORY: Generalized abdominal pain. FINDINGS: An AP, portable, upright chest radiograph is obtained. No prior studies are available for c omparison at the time of dictation. The examination is degraded by portable technique and patient rot ation. The patient is status post midline sternotomy and cardiac valve surgery. The heart is top norm al for projection noting atherosclerotic calcification of the thoracic aorta. The pulmonary vasculatu re is noncongested. Scarring/atelectasis is seen at both lung bases. No airspace consolidation or lar ge pleural effusion is identified. No pneumothorax is seen. The skeletal structures are osteopenic. T he bony thorax is grossly intact. IMPRESSION: No active disease in the chest. ACT 112: Negative or not required by law. Electronically signed by: Ariel Plascencia M.D. 11/25/2019 3:53 PM
[2019-11-25 15:57] LABS: Albumin Level 4.3 gm/dl (3.4-5.0); BUN Creatinine Ratio 19.3 (10-20); Calcium 9.1 mg/dl (8.5-10.1); Creatinine Clr Calc Pharmacy 37.4 ml/min; Est GFR (African American) 75.3; Potassium 4.4 mmol/L (3.5-5.1)
[2019-11-25 16:00] LABS: Albumin Globulin Ratio 1.2 (0.9-2); Bilirubin,Total 1.1 mg/dl (0.2-1); Globulin 3.5 gm/dl (2.5-4.0); Total Protein 7.8 gm/dl (6.4-8.2)
[2019-11-25] MEDS ORDERED: IOVERSOL 100ml IV PRN (16:10)
--- NOTE | 2019-11-25 16:31 | CT Scan Report ---
CT SCAN OF THE ABDOMEN AND PELVIS WITH IV CONTRAST CLINICAL HISTORY: Right groin swelling. COMPARISON STUDY: Abdominal CT dated 06/02/2016. TECHNIQUE: Following the IV administration of 93 cc of Optiray 320, CT scan of the abdomen and pelvi s is performed from the lung bases to the proximal femora. Images are reviewed in the axial, sagittal , and coronal planes. IV contrast was administered without complication. A dose lowering technique wa s utilized adhering to the principles of ALARA. CT DOSE: 284.39 mGy.cm FINDINGS: Lung bases: The patient is status post midline sternotomy. The heart is mildly enlarged and without p ericardial effusion. There is evidence of previous mitral valve surgery. The coronary arteries are de nsely calcified. The lung bases are clear noting dependent atelectasis. Liver: The contrast-enhanced liver is normal in size, contour, and attenuation. There is no intrahepa tic biliary ductal dilatation. The hepatic veins and portal veins are patent. Gallbladder: Unremarkable. Spleen: Normal in size and attenuation. Pancreas: Mildly atrophic and grossly unremarkable. Adrenal glands: There is nodular thickening of the adrenal glands which is similar to previous. Kidneys: The contrast enhanced kidneys demonstrate cortical atrophy and are without hydronephrosis. T he kidneys enhance symmetrically. There is a 4 mm nonobstructing calculus in the upper pole of the le ft kidney. Abdominal vasculature: There is advanced atherosclerotic calcification and ectasia of the abdominal a kasi. Bowel: The stomach and proximal small bowel loops are distended and fluid-filled. Small bowel loops m easure up to 2.6 cm in diameter. The obstruction is caused by an incarcerated fluid and small bowel c ontaining right inguinal hernia. The distal small bowel and colon are decompressed. There is no pneum atosis intestinalis or portal venous gas. There is advanced colonic diverticulosis without CT evidenc e of acute diverticulitis. A duodenal diverticulum is incidentally noted. The appendix is well-visua lized and normal. Peritoneum: There is trace abdominopelvic ascites. No intraperitoneal free air is seen. Lymphadenopathy: None. Pelvic viscera: The prostate gland is enlarged and heterogeneous measuring 6 cm in transverse diamete r. Although decompressed, the bladder wall appears thickened and trabeculated suggesting chronic outl et obstruction. There is a bowel containing right inguinal hernia. Skeletal structures: The skeletal structures are osteopenic. There is moderate to advanced lumbosacra l spondylosis. No lytic or blastic lesions are seen. Soft tissues: The patient is cachectic. IMPRESSION: 1. Findings are consistent with a small bowel obstruction secondary to an incarcerated right inguinal hernia. 2. No intraperitoneal free air is seen. There is no pneumatosis intestinalis or portal venous gas. 3. Trace abdominopelvic ascites. 4. Advanced colonic diverticulosis without CT evidence of acute diverticulitis. 5. Left-sided nephrolithiasis. 6. Additional findings as above. ACT 112: Negative or not required by law. Electronically signed by: Ariel Plascencia M.D. 11/25/2019 4:30 PM
[2019-11-25] MEDS ORDERED: ONDANSETRON INJ 2 MG/ML 2 ML VIAL IV STA (16:53)
--- NOTE | 2019-11-25 17:04 | History & Physical Report ---
Date of Service November 25, 2019 Assessment & Plan (1) SBO (small bowel obstruction): I discussed his findings with him and his son. This clearly will need surgical intervention and the sooner the better. Because of his 2 prior repairs 1 of which was open with mesh I am recommending a laparoscopic approach. I will reduce the small bowel obstruction and place an intra-abdominal mesh. We discussed the risks which include bleeding, infection, infection of mesh requiring explant, injury to other organs such as bladder ureter bowel etc., DVT, PE, [place], CVA and even . Following our discussion I answered all their questions. We will proceed with laparoscopic reduction of a small bowel obstruction with repair of an incarcerated right inguinal hernia BRENDA. He will need to be admitted for post op observation following the procedure this evening. They agree to the plan and have signed the consent. (2) Incarcerated right inguinal hernia: History of Present Illness Primary Care Provider: Fabio Melraa MD 89-year-old male with a history of 2 prior right inguinal hernia repairs in the past. Last night around 10 PM he noted a large bulge in his right groin. He had some nausea with some emesis this morning. His son brought him to the ER and work-up includes a CAT scan which showed an incarcerated right inguinal hernia with associated small bowel obstruction. Patient is currently comfortable. No nausea currently. Allergies Allergy/AdvReac Type Severity Reaction Status Date / Time No Known Allergies Allergy Verified 11/25/19 15:35 Home Medications Home Medications Medication Instructions Recorded Confirmed Type aspirin 81 mg tablet,delayed 81 mg PO DAILY 02/16/19 11/25/19 History release atorvastatin 20 mg tablet 20 mg PO DAILY 02/16/19 11/25/19 History losartan 25 mg tablet 25 mg PO DAILY 02/16/19 11/25/19 History metoprolol succinate 25 mg 12.5 mg PO DAILY tab 02/16/19 11/25/19 History tablet,extended release 24 hr Past Med/Surg History Medical History Coronary artery disease (Chronic) History of aortic stenosis (Chronic) HTN (hypertension) (Chronic) Hyperlipidemia LDL goal <70 (Chronic) Parkinsons disease (Chronic) Surgical History H/O aortic valve replacement (Inactive) H/O hernia repair (Inactive) S/P aortic aneurysm repair S/P CABG x 1 (Inactive) S/P hernia repair Family History Brother Hypertension Parkinson disease Social History Smoking Status: Never smoker Hx Alcohol Use: No Hx Substance Use: No Preferred Language: Maori Communication Ability: Effective Visual Impairment: No Limitations Hearing Ability: Normal Beliefs That Will Affect Care: None marital status: Current Living Situation: Spouse current occupational status: retired Feels Safe at Home: Yes Childhood Exposure to Second-Hand Smoke: No Diet Comment: regular caffeine: Yes during the past year weight has: decreased > 10 lbs Dental Care, Regularly: No Physical Activity Frequency: 3-4 Times per Week Physical Activity Frequency Comment: walk Seatbelt Use: always Sunscreen Use: No (does not go out in the sun) Review of Systems All systems reviewed & are unremarkable except as noted in HPI & below Physical Exam Constitutional: WD/WN, vitals as above no acute distress and not ill appearing Eyes: PERRL, conjunctivae normal, anicteric sclerae EOM intact bilaterally ENMT: external ear and nose normal, oropharynx normal Ears: no hearing impairment Neck: trachea midline, no thyromegaly Respiratory: normal respiratory effort; no respiratory distress and does not use accessory muscles Cardiovascular: Rate/Rhythm: regular rate and regular rhythm Gastrointestinal (Abdomen): Soft nontender. He has a large obvious right inguinal hernia. There is bowel incarceration. It is nonreducible. Skin: no rashes, warm and dry Psychiatric: Orientation: alert, oriented x 3 and cooperative Results & Data Vital Signs (Past 12 Hours) Vital Signs Temp Pulse Pulse Resp BP BP Pulse Ox 11/25/19 16:00 76 19 128/74 94 11/25/19 15:33 78 12 137/80 95 11/25/19 13:26 36.8 C 94 H 16 138/87 97
[2019-11-25 22:39] LABS: Appearance Urine Clear (Clear); Bacteria Urine Automated Negative (Negative); Bilirubin Urine Negative (Negative); Blood Urine Trace (Negative); Color Urine Yellow; Glucose Urine UA Negative (Negative); Ketones Urine 2+ (Negative); Leukocyte Esterase Urine Negative (Negative); Nitrite Urine Negative (Negative); Protein Urine Negative (Negative); RBC Urine Automated 0-4 /hpf (0-4); Specific Gravity Urine > 1.045 (1.000-1.030); Urobilinogen Urine Negative (Negative)
[2019-11-25] MEDS ORDERED: BUPIVACAINE/EPINEPHRINE 0.25% 1:200,000 30 ML VIAL ONE (23:14)
[2019-11-25] MEDS ORDERED: ONDANSETRON INJ 2 MG/ML 2 ML VIAL IV PRN (23:45)
[2019-11-25] MEDS ORDERED: ATROPINE SULFATE 0.1 MG/ML 10ML SYR IV PRN (23:45)
[2019-11-25] MEDS ORDERED: ePHEDrine sulfate 50 MG/ML AMP IV PRN (23:45)
[2019-11-25] MEDS ORDERED: fentaNYL citrate 100 MCG/2 ML VIAL IV PRN (23:45)
--- NOTE | 2019-11-25 23:45 | Anesthesiology Consultation ---
Date of Service November 25, 2019 Assessment & Plan Chart Review Chart Review: Acceptable Risk for Surgery and Patient NOT seen in Pre Admission Testing Consults Requested none ASA [id number] Proposed Anesthesia Anesthesia Type: General Risk / Benefits Reviewed With: PT / POA / Parent / Guardian, Accepts Plan and Informed Consent Obtained Additional Comments: patient has low risk history for undiagnosed covid 19. will forgo covid time secondary to serious medical comorbidities and risk of increased anesthesia time. entire OR staff in agreement and will wear appropriate PPE. History Surgery Operation Date: 11/25/19 21:00 Proposed Procedures p Laparoscopic Inguinal Hernia Repair - Jimmy Rodriguez, Height/Weight Height: 5 ft 8 in Weight: 52.4 kg Allergies Allergy/AdvReac Type Severity Reaction Status Date / Time No Known Allergies Allergy Verified 11/25/19 15:35 Medications Home Medications Medication Instructions Recorded Confirmed Last Taken aspirin 81 mg tablet,delayed 81 mg PO DAILY 02/16/19 11/25/19 11/24/19 release atorvastatin 20 mg tablet 20 mg PO DAILY 02/16/19 11/25/19 11/24/19 losartan 25 mg tablet 25 mg PO DAILY 02/16/19 11/25/19 11/24/19 metoprolol succinate 25 mg 12.5 mg PO DAILY tab 02/16/19 11/25/19 11/24/19 tablet,extended release 24 hr Active Medications Generic Name Dose Route Start Last Admin Trade Name Freq PRN Reason Stop Dose Admin Ioversol 93 ml 11/25/19 16:10 11/25/19 16:10 Optiray 320 100ml IV 11/29/19 16:09 93 ml ONCE PRN Administration Interaction Checking NPO Date Last Intake of Fluids: 11/24/19 Time Last Intake of Fluids: 00:00 Date Last Intake of Solids: 11/24/19 Time Last Intake of Solids: 00:00 Past Medical History Medical History Coronary artery disease (Chronic) History of aortic stenosis (Chronic) HTN (hypertension) (Chronic) Hyperlipidemia LDL goal <70 (Chronic) Parkinsons disease (Chronic) Exercise / Class Metabolic Activity II 4-5 Yardwork/Stairs/Walk up hill Past Family History Family History Brother Hypertension Parkinson disease Past Surgical History Surgical History H/O aortic valve replacement (Inactive) H/O hernia repair (Inactive) S/P aortic aneurysm repair S/P CABG x 1 (Inactive) S/P hernia repair Past Anesthesia History No Hx of Anesthesia Complications and No Family Hx of Anesthesia Complications History of PONV No Hx of PONV and No Hx of Motion Sickness Social History Smoking Status: Never smoker Hx Alcohol Use: No Hx Substance Use: No Physical Exam Vital Signs Last Vital Signs Temp 36.8 C 11/25/19 13:26 Pulse 83 11/25/19 23:20 Resp 18 11/25/19 23:20 BP 135/76 11/25/19 23:20 Pulse Ox 97 11/25/19 23:20 ENMT Mouth: no dentition abnormality Thyromental Distance: > or= 3.5 Finger Breadths Mallampati Class: II Neck normal visual inspection Respiratory normal respiratory effort Auscultation: lungs clear to auscultation bilaterally Cardiovascular Rate/Rhythm: regular rate and regular rhythm Psychiatric Orientation: alert Testing Laboratory Results 11/25/19 15:25 11/25/19 15:25 Urine Color Yellow 11/25/19 21:30 Urine Appearance Clear (Clear) 11/25/19 21:30 Urine pH 5.0 (4.5-7.5) 11/25/19 21:30 Ur Specific [place] > 1.045 (1.000-1.030) H 11/25/19 21:30 Urine Protein Negative (Negative) 11/25/19 21:30 Urine Glucose (UA) Negative (Negative) 11/25/19 21:30 Urine Ketones 2+ (Negative) H 11/25/19 21:30 Urine Nitrite Negative (Negative) 11/25/19 21:30 Ur Leukocyte Esterase Negative (Negative) 11/25/19 21:30 Urine WBC (Auto) 1-5 /hpf (0-5) 11/25/19 21:30 Urine RBC (Auto) 0-4 /hpf (0-4) 11/25/19 21:30 U Hyaline Cast (Auto) 1-5 /lpf (0-5) 11/25/19 21:30 U Epithel Cells (Auto) 10-20 /lpf (0-5) H 11/25/19 21:30 Urine Bacteria (Auto) Negative (Negative) 11/25/19 21:30
[2019-11-25] MEDS ORDERED: fentaNYL citrate 100 MCG/2 ML VIAL ONE (23:52)
--- NOTE | 2019-11-26 01:01 | Operative Report ---
PG Post Operative Report Pre & Post Diagnosis Operation Date: 11/25/19 21:00 Pre-Op Diagnosis: Incarcerated right inguinal hernia, Small Bowel Obstruction Post-Op Diagnosis: Incarcerated right inguinal hernia, Small Bowel Obstruction I identified the patient and participated in the time-out.: Yes Procedure Operation Date: 11/25/19 21:00 Actual Procedures p Laparoscopic release of SBO; Right Inguinal Recurrent Hernia Repair with Mesh(Right) - Jimmy Rodriguez DO Surgeon Jimmy Rodriguez DO Italian Lecturer carole Dumont Estimated Blood Loss 5 Findings Consistent with Post-Op Diagnosis Specimens none Description of Procedure After informed consent was obtained the patient was taken to the operating room and placed in supine position. After successful intubation a Elliott catheter was placed. The abdomen was shaved and sterilely prepped and draped in usual fashion. I tried to manually reduce the hernia after induction of anesthesia but was unsuccessful. A periumbilical incision was made with an 11 blade scalpel and carried down through the soft tissue using cautery. The anterior rectus fascia was opened using cautery and two #0 Vicryl stay sutures were placed. Peritoneum was entered using blunt finger penetration a finger sweep performed. A 12 mm Prabhakar was placed and the abdomen insufflated to 18 mmHg. Laparoscope was inserted and the abdomen examined in 360 degrees. 2 left mid abdominal 5 mm trochars were placed under direct vision as well. There was a small bowel obstruction leading down into an incarcerated right inguinal hernia. It was a very tight incarceration and initially I was unable to reduce the bowel. I used the harmonic scalpel to slightly widen the hernia defect itself. With manual pressure externally and gentle traction internally we were able to reduce the small bowel obstruction. Initially the bowel was ischemic and had mild erythema as well. We allowed this to re-perfuse while we repaired the defect itself. I was able to reduce the large hernia sac and excise it using the harmonic scalpel. Next I used a piece of surgi-mesh which I rolled up and placed into the abdominal cavity through the camera port site. I unrolled such that the anti-adhesive barrier was facing the abdominal cavity. It was placed over the defect and secured laterally above the iliopubic tract as well as on the anterior abdominal wall using a pro-tacker. I also placed 2 tacks into Kavin's ligament. This allowed the mesh to lay nice and tension-free and covered the defect for several centimeters in all directions. At this point I reexamined the small 1 inch segment of ischemic small bowel. I decided to deliver it out of the camera port site so I could manually inspected. The 5 mm trochars were removed. The fascia of the camera port was slightly extended using cautery. A Yazmin clamp was then used to deliver the small bowel out onto the abdominal wall. It appeared to me the bowel would be fine. It was mostly serosal edema and there was no evidence of infarction. I did place a 3-0 silk marking stitch in case he would deteriorate we would be able to find the area more readily. I then reduced this back in the abdominal cavity and closed the fascial defect using 0 Vicryl in simple interrupted fashion. All the wounds were irrigated and closed using 4-0 Monocryl. Marcaine was injected around them for postoperative analgesia and skin glue used as a dressing. The patient was awakened extubated and transferred recovery in guarded condition. My physician pet care assistant was present for the entire case. He helped prep the patient. He helped run the camera during my procedure as well as with wound closure and dressing placement. I attest to the content of the Intraoperative Record and any orders documented therein. Any exceptions are noted below.
[2019-11-26] MEDS ORDERED: ONDANSETRON INJ 2 MG/ML 2 ML VIAL IV PRN (02:01)
[2019-11-26] MEDS ORDERED: MoRPHine SULFATE 2 MG/ML CARP IV PRN (02:01)
[2019-11-26] MEDS ORDERED: OXYCODONE HCL IR 5 MG TAB (IMMEDIATE RELEASE) PO PRN (02:01)
[2019-11-26] MEDS: LACTATED RINGER'S 1,000 ML IV SCH ×2 (02:48→15:46)
[2019-11-26] MEDS: ACETAMINOPHEN 1,000 MG/100 ML VIAL IV SCH ×3 (02:48→16:57)
--- NOTE | 2019-11-26 03:50 | Anesthesiology Progress Note ---
Date of Service November 26, 2019 Anesthesia Post Procedure Vital Signs Vital Signs: Temp Pulse Pulse Pulse Resp BP BP 11/26/19 02:45 36.7 C 100 H 14 109/67 11/26/19 02:15 36.4 C L 63 14 126/70 11/26/19 01:45 36.6 C 65 16 138/69 11/26/19 01:35 36.7 C 60 18 136/69 11/26/19 01:30 57 L 12 127/62 11/26/19 01:25 36.7 C 59 L 12 133/68 11/26/19 01:20 63 12 130/70 11/26/19 01:15 67 12 142/69 H 11/26/19 01:10 36.6 C 69 13 138/65 11/26/19 01:05 36.6 C 67 18 124/63 11/25/19 23:20 83 18 135/76 11/25/19 22:30 87 14 140/86 11/25/19 22:00 83 11 L 139/79 11/25/19 21:30 85 9 L 148/87 H 11/25/19 21:00 80 11 L 139/79 11/25/19 20:30 71 12 141/81 H 11/25/19 20:00 81 13 152/90 H 11/25/19 19:30 72 15 134/80 11/25/19 19:01 78 14 153/95 H 11/25/19 18:30 69 15 151/84 H 11/25/19 18:00 68 15 133/75 11/25/19 17:30 68 14 147/81 H 11/25/19 17:00 72 12 118/72 11/25/19 16:30 64 8 L 109/60 11/25/19 16:00 76 19 128/74 11/25/19 15:33 78 12 137/80 11/25/19 13:26 36.8 C 94 H 16 138/87 Pulse Ox 11/26/19 02:45 91 11/26/19 02:15 92 11/26/19 01:45 96 11/26/19 01:35 95 11/26/19 01:30 97 11/26/19 01:25 98 11/26/19 01:20 98 11/26/19 01:15 99 07/27/20 01:10 94 11/26/19 01:05 97 11/25/19 23:20 97 11/25/19 22:30 96 11/25/19 22:00 95 11/25/19 21:30 96 11/25/19 21:00 98 11/25/19 20:30 11/25/19 20:00 11/25/19 19:30 11/25/19 19:01 11/25/19 18:30 97 11/25/19 18:00 97 11/25/19 17:30 94 11/25/19 17:00 12 L 11/25/19 16:30 11/25/19 16:00 94 11/25/19 15:33 95 11/25/19 13:26 97 Pain Intensity Abdomen: Pain Intensity: 3 Transfer of Care Handoff Completed per policy Notes Mental Status: alert / awake / arousable Patient Amnestic to Procedure: Yes Nausea / Vomiting: adequately controlled Pain: adequately controlled Airway Patency, RR, SpO2: stable & adequate BP & HR: stable & adequate Hydration State: stable & adequate Anesthetic Complications: no major complications apparent
[2019-11-26] MEDS: ENOXAPARIN INJ 40 MG/0.4 ML SYR SQ SCH (07:56)
[2019-11-26 08:17] LABS: INR 1.1 (0.9-1.1); Prothrombin Time 11.4 Seconds (9.0-12.0)
--- NOTE | 2019-11-26 12:16 | Surgery Progress Note ---
Date of Service November 26, 2019 Assessment & Plan (1) SBO (small bowel obstruction): pod 1 doing well will d/c ngt and start clears PT/OT will slowly advance diet. poss d/c tomorrow pending PT rec's (2) Incarcerated right inguinal hernia: Subjective pt feeling good. denies pain. Physical Exam Physical Exam: alert. nad abd: soft. wounds look good. minimal RLQ ttp. no g/r/r Results & Data Vital Signs (Past 12 Hours) Vital Signs Temp Pulse Pulse Pulse Pulse Resp BP 11/26/19 07:46 36.7 C 93 H 16 11/26/19 04:55 11/26/19 04:45 36.3 C L 88 14 11/26/19 03:45 36.7 C 80 12 11/26/19 02:45 36.7 C 100 H 14 11/26/19 02:15 36.4 C L 63 14 11/26/19 01:45 36.6 C 65 16 11/26/19 01:35 36.7 C 60 18 136/69 11/26/19 01:30 57 L 12 127/62 11/26/19 01:25 36.7 C 59 L 12 133/68 11/26/19 01:20 63 12 130/70 11/26/19 01:15 67 12 142/69 H 11/26/19 01:10 36.6 C 69 13 138/65 11/26/19 01:05 36.6 C 67 18 BP BP Pulse Ox 11/26/19 07:46 104/67 93 11/26/19 04:55 95/59 L 11/26/19 04:45 92/54 L 94 11/26/19 03:45 94/58 L 96 11/26/19 02:45 109/67 91 11/26/19 02:15 126/70 92 11/26/19 01:45 138/69 96 11/26/19 01:35 95 11/26/19 01:30 97 11/26/19 01:25 98 11/26/19 01:20 98 11/26/19 01:15 99 11/26/19 01:10 94 11/26/19 01:05 124/63 97 PG Care Time/CCT Total # of Minutes Spent Total Time Spent with Patient: Total time spent is greater than 50% in coordination of care (as documented) at patient's floor/unit and/or counseling patient: Coding Level of Care Code None Diagnoses SBO (small bowel obstruction) K56.609 Incarcerated right inguinal hernia K40.30
[2019-11-27] MEDS: ACETAMINOPHEN 1,000 MG/100 ML VIAL IV SCH ×2 (02:52→10:21)
[2019-11-27] MEDS: LACTATED RINGER'S 1,000 ML IV SCH (03:56)
--- NOTE | 2019-11-27 09:04 | Surgery Progress Note ---
Date of Service November 27, 2019 Assessment & Plan (1) Incarcerated right inguinal hernia: POD#2 release of SBO and repair of right inguinal hernia Doing well overall, advancing diet as tolerates Denies much in way of abdominal symptoms Will discuss with family discharge plans... rehab vs home with family support If discharges today will ask patient to follow up in clinic within 1-2 weeks for a post op check Pt seen and examined with Dr. Rodriguez as above. doing well. recommended rehab but pt and family wish to take him home. surgically doing ok. will d/c home under care of family. Subjective Patient states he is feeling good. Tolerated liquid diet. Denies pain. Wants to go home and feels like between he and his family they can manage...says he walks laps around his pool. Physical Exam Physical Exam: awake Respiratory: normal respiratory effort Gastrointestinal (Abdomen): Inspection/Auscultation: + abdominal surgical incision (c/d/i) Results & Data Vital Signs (Past 12 Hours) Vital Signs Temp Pulse Resp BP Pulse Ox 11/27/19 07:42 36.5 C 84 16 110/66 96 11/26/19 23:20 36.8 C 90 18 103/68 95 PG Care Time/CCT Total # of Minutes Spent Total Time Spent with Patient: Total time spent is greater than 50% in coordination of care (as documented) at patient's floor/unit and/or counseling patient: Coding Level of Care Code None Diagnoses Incarcerated right inguinal hernia K40.30
[2019-11-27] MEDS: ENOXAPARIN INJ 40 MG/0.4 ML SYR SQ SCH (09:06)
--- NOTE | 2019-12-06 01:51 | Discharge Summary (DS) ---
ADMISSION DIAGNOSES: 1. Small-bowel obstruction. 2. Incarcerated right inguinal hernia. DISCHARGE DIAGNOSES: 1. Small-bowel obstruction. 2. Incarcerated right inguinal hernia. HOSPITAL COURSE: This is an 89-year-old male who was seen and evaluated by Dr. Rodriguez in the Emergency Department on 11/25/2019. On the date of admission, the patient presented to the Emergency Department due to a bulge in his right groin with some nausea and vomiting. The patient was evaluated in the Emergency Department where he underwent a CT scan of the abdomen and the pelvis. This study demonstrated a small-bowel obstruction secondary to an incarcerated right inguinal hernia. Because of this, Dr. Rodriguez was consulted and on the date of admission, he took the patient to the operating room and performed a laparoscopic release of small-bowel obstruction and a right inguinal herniorrhaphy with mesh. The procedure was without complications. During the patient's postoperative course, his diet was advanced in the appropriate fashion. He was felt stable for discharge home on 11/27/2019. The patient was provided with wound care instructions along with diet and activity. He did not have any change in his home medications. He was told to follow up with Dr. Rodriguez in the office in 1 week.
== END 2019-11-27 12:02 | disposition home health service (06) | DRG 351 ==
LOC: ED 13:18 → OR 23:20 → 3N 11-26 01:02

== ENCOUNTER 2019-12-25 16:42 | Inpatient (IN) ==
[2019-12-25] MEDS ORDERED: SODIUM CHLORIDE 0.9% 1000ML 1,000 ML IV SCH ×2 (17:00→22:12)
--- NOTE | 2019-12-25 17:20 | XRay Report ---
XR chest 1V portable HISTORY: weakness COMPARISON: Chest 11/25/2019. FINDINGS: No pneumothorax. No pleural effusions. The heart is normal in size. The lungs are clear. Th ere are poststernotomy changes. 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 IMPRESSION: No acute process. ACT 112: Negative or not required by law. Electronically signed by: Luisito Lorenzo M.D. 12/25/2019 5:18 PM
[2019-12-25 17:29] LABS: Basophils # (auto) 0.02 K/uL (0-0.2); Basophils % (auto) 0.4 %; Eosinophils # (auto) 0.06 K/uL (0-0.5); Eosinophils % (auto) 1.1 %; Hemoglobin 11.5 g/dL (14.0-18.0); Immature Granulocytes # (auto) 0.02 K/uL (0.00-0.02); Immature Granulocytes % (auto) 0.4 %; Lymphocytes % (auto) 15.8 %; Mean Corpuscular Hemoglobin 31.8 pg (25-34); Mean Corpuscular Hgb Conc 33.8 g/dL (32-36); Mean Corpuscular Volume 93.9 fL (80-100); Mean Platelet Volume 8.9 fL (7.4-10.4); Monocytes # (auto) 0.68 K/uL (0.11-0.59); Neutrophils # (auto) 4.01 K/uL (1.4-6.5); Neutrophils % (auto) 70.3 %; Platelet Count 387 K/uL (130-400); RDW Standard Deviation 44.8 fL (36.4-46.3); Red Blood Count 3.62 M/uL (4.7-6.1); White Blood Count 5.69 K/uL (4.8-10.8)
[2019-12-25 17:45] LABS: Alanine Aminotransferase 16 U/L (12-78); Albumin Level 3.2 gm/dl (3.4-5.0); Aspartate Aminotransferase 26 U/L (15-37); BUN Creatinine Ratio 18.3 (10-20); Blood Urea Nitrogen 13 mg/dl (7-18); Calcium 8.4 mg/dl (8.5-10.1); Carbon Dioxide 26 mmol/L (21-32); Chloride 92 mmol/L (98-107); Creatinine Clr Calc Pharmacy 56.4 ml/min; Est GFR (African American) 98.9; Est GFR (Non-African American) 85.4; Glucose 106 mg/dl (70-99); Magnesium 2.2 mg/dl (1.8-2.4); Potassium 4.3 mmol/L (3.5-5.1); Sodium 124 mmol/L (136-145)
[2019-12-25 17:55] LABS: Albumin Globulin Ratio 0.9 (0.9-2); Alkaline Phosphatase 67 U/L (45-117); Bilirubin,Total 0.5 mg/dl (0.2-1); Globulin 3.5 gm/dl (2.5-4.0); Total Protein 6.7 gm/dl (6.4-8.2); Troponin I < 0.015 ng/ml (0-0.045)
--- NOTE | 2019-12-25 19:18 | CT Scan Report ---
CT chest wo con CT DOSE: 277.30 mGy.cm HISTORY: Pneumonia, aspiration, weight loss TECHNIQUE: Multiaxial CT images of the chest were performed without contrast. A dose lowering techni que was utilized adhering to the principles of ALARA. COMPARISON: Chest 12/25/2019. FINDINGS: No pneumothorax. No pleural effusions. A few opacified distal right lower lobe bronchi. Rebecca r-complete opacification of the left lower lobe bronchi with mucoid material. Trace mucoid material w ithin the trachea. Calcified granuloma within the left upper lobe on image 128. Patchy densities at t he lung bases posteriorly with a few tree-in-bud nodular opacities within the base of the left lower lobe and a few faint small groundglass densities within the base of the right lower lobe. This likely represents a pneumonia and can be seen in the setting of aspiration given the opacified lower lobe b ronchi. No suspicious lytic or blastic osseous lesions. Poststernotomy changes are noted. Limited vie ws of the upper abdomen demonstrate a normal liver and spleen. Aortic valve prosthesis is again noted . The heart remains borderline enlarged. Edema/ascites within the fat-containing hiatal hernia. This is also unchanged. Moderate amount of well-formed stool within the colon. No mediastinal hilar lympha denopathy. Normal caliber esophagus. Mild calcified plaque within the thoracic aorta. IMPRESSION: 1. Mucoid opacification of the bilateral lower lobe bronchi, left greater than right. There are also left greater than right airspace opacities within the lung bases posteriorly with a few tree-in-bud n odular opacities within the left lower lobe. These findings favor an aspiration pneumonia. 2. Mild edema/ascites within the fat-containing hiatus hernia. This remains unchanged. ACT 112: Negative or not required by law. Electronically signed by: Luisito Lorenzo M.D. 12/25/2019 7:17 PM
[2019-12-25] MEDS ORDERED: PIPERACILLIN/TAZOBACTAM 4.5 GM/120 ML BAG IV ONE (19:28)
[2019-12-25] MEDS ORDERED: PIPERACILL/TAZOBAC CONSULT ACTIVE PRN ×2 (19:28→22:12)
[2019-12-25] MEDS ORDERED: AMPICILLIN/SULBACTAM SOD 3,000 MG in 0.9 % SODIUM CHLORIDE 100 ML IV ONE (19:30)
--- NOTE | 2019-12-25 20:53 | History & Physical Report ---
Date of Service December 25, 2019 Assessment & Plan (1) Hyponatremia: 89yo C male presenting with weakness/fatigue and frequent falls. Db=577 (most recently 134 on 11/25/19), most likely contributing to patient's weakness and gait instability. -Admit to medical floor -Check urine osm/serum osm, urine Na -Gentle repletion with NSS at 125mL/hr, goal 0.5/hr -BMP TID Present on Admission?: Yes (2) Aspiration into lower respiratory tract: Patient with slight cough. No overt aspiration noted by family. CH chest with mucoid opacification of the bilateral lower lobe bronchi, L>R. Also L>R airspace airspace opacities within the lung bases posteriorly with a few tree-in-bud nodular opacities within the LLL. These findings favor an aspiration pneumonia. Saturations are adequate at present with occasional dips into the low 90's, high 80s -Supplemental O2 as needed, humidified -Continuous pulse oximetry -Zosyn 3.375 gm IV q 8 -Flutter valve, IS -Aspiration precautions -Speech/Swallow evaluation -Pulmonary consultation re: possible bronchoscopy Present on Admission?: Yes (3) Hyperlipidemia: Chronic -Continue Atorvastatin 20mg po daily Present on Admission?: Yes (4) Hypertension, benign: Patient with reported history of HTN, recently low BPs at home. ?dehydration/poor intake contributing. Was formerly on Losartan and metoprolol which have since been discontinued. PV=372/75 today -Continue to monitor Present on Admission?: Yes (5) Single vessel coronary artery disease: Chronic. Stable. Patient denies CP. EKG with no evidence of acute ischemia -Continue ASA 81mg po daily -Continue Atorvastatin 20mg po daily -Metoprolol and Losartan discontinued as above due to low blood pressures at home Present on Admission?: Yes (6) History of aortic stenosis: s/p repair -cautious fluid management F/E/N - NSS at 125 mL/hr x 1 liter, monitor BMP q 8 hours for sodium correction, heart healthy diet as tolerated Ppx - Lovenox 30mg daily Code - Full per discussion with patient Dispo - Admit to medical floor Present on Admission?: Yes History of Present Illness Chief Complaint: weakness Primary Care Provider: MD April Guallpanicko Fajardo is a pleasant 89yo C male with history of CAD s/p CABG x 1V, HTN/HLP, Parkinson's disease and aortic stenosis. Patient was recently admitted for SBO secondary to incarcerated right inguinal hernia. He had laparoscopic repair with mesh placement performed by Dr. Rodriguez on 11/26/19. Surgery was well tolerated with no complications. Patient was discharged home in stable condition on 11/27/19. The patient had a hematoma near midline incision which has been resolving. He was seen in followup with General Surgery on 12/04/19. Patient has been having progressive weakness, gait instability and falls over the last few days. His family reports weight loss of 6 pounds over the last few weeks (119# -> 113#), poor appetite. He has also been having low blood pressure, family reports 90s/50's at home. His home antihypertensives were recently discontinued due to low BPs. Patient has been coughing as well. Nonproductive. He denies CP/SOB/wheeze. Denies fevers/chills sweats. Denies abdominal pain/nausea/vomiting/diarrhea. He has some baseline constipation as well as possible urinary retention. Occasional coughing with meals. NO additional complaints at this time. ER Course: Ampicillin/Sulbactam x 3gm IV, NSS x 1L at 125mL/hr Allergies Allergy/AdvReac Type Severity Reaction Status Date / Time No Known Allergies Allergy Verified 12/25/19 20:06 Home Medications Home Medications Medication Instructions Recorded Confirmed Type aspirin 81 mg tablet,delayed 81 mg PO DAILY 02/16/19 12/25/19 History release atorvastatin 20 mg tablet 20 mg PO DAILY 02/16/19 12/25/19 History acetaminophen [Tylenol] 650 mg PO BID 12/25/19 12/25/19 History betamethasone dipropionate 1 applic TOPICAL BID PRN 12/25/19 12/25/19 History bisacodyl 5 mg PO DAILY PRN 12/25/19 12/25/19 History uhwqunjaufz-eybgvzkin-iut C-Mn 1 cap PO UD 12/25/19 12/25/19 History [Glucosamine 1500 Complex] polyethylene glycol 3350 [Miralax] 17 g PO DAILY 12/25/19 12/25/19 History Past Med/Surg History Medical History (Updated 12/25/19 @ 21:09 by Elvira Drake DO) Coronary artery disease History of aortic stenosis HTN (hypertension) Hyperlipidemia LDL goal <70 Parkinsons disease Surgical History (Updated 12/17/19 @ 11:28 by Jimmy Rodriguez, DO) H/O aortic valve replacement H/O hernia repair H/O right inguinal hernia repair (11/25/19) Laparoscopic release of SBO; Right Inguinal Recurrent Hernia Repair with Mesh Dr. Rodriguez 11/25/2019 S/P aortic aneurysm repair S/P CABG x 1 S/P hernia repair Family History Brother Hypertension Parkinson disease Social History Smoking Status: Never smoker Hx Alcohol Use: No Hx Substance Use: No Preferred Language: Italian Communication Ability: Effective Visual Impairment: No Limitations Hearing Ability: Normal Trading Assistant Required: No Beliefs That Will Affect Care: None marital status: Current Living Situation: Spouse current occupational status: retired Feels Safe at Home: Yes Childhood Exposure to Second-Hand Smoke: No Diet Comment: regular caffeine: Yes during the past year weight has: decreased > 10 lbs Dental Care, Regularly: No Physical Activity Frequency: 3-4 Times per Week Physical Activity Frequency Comment: walk Seatbelt Use: always Sunscreen Use: No (does not go out in the sun) Review of Systems Review of Systems: All systems reviewed & are unremarkable except as noted in HPI & below Physical Exam Physical Exam: General: frail, elderly C male patient resting comfortably, NAD, non-toxic in appearance, AA&O x 4 Skin: warm, dry, abdominal incision healing well, no bleeding/drainage, bandage c/d/i HEENT: NC/AT, PERRL, EOMI, anicteric sclera, conjunctiva without injection, external ear normal to inspection and nontender, nares patent, dry mucus membranes, dentition intact, no oropharyngeal lesions, neck supple, trachea midline, no LAD, no thyromegaly, no JVD Heart: +S1/S2, regular, no m/r/g Lungs: equal air entry bilaterally, +crackles/coarse breath sounds in bilateral bases Abd: +BS, soft, NT/ND, no masses/organomegaly/ascites Ext: warm, 2+ pulses in UE/LE bilaterally, no clubbing/cyanosis or edema Neuro: nonfocal, patient AA&O x 4, speech intact, no facial droop, moving all extremities on command with equal strength 5/5, coarse resting tremor noted in hands Results & Data Results & Data ([facility]) Vital Signs (Past 12 Hours) Vital Signs Temp Pulse Pulse Resp BP BP Pulse Ox 12/25/19 20:30 69 12 136/83 100 12/25/19 20:00 63 136/78 100 12/25/19 19:30 72 140/85 99 12/25/19 19:10 68 142/79 H 98 12/25/19 18:01 68 22 127/75 94 12/25/19 16:49 36.7 C 71 104/79 86 L Laboratory Results Lab Results 12/25/19 12/25/19 12/25/19 Range/Units 17:11 17:11 17:11 WBC 5.69 (4.8-10.8) K/uL RBC 3.62 L (4.7-6.1) M/uL Hgb 11.5 L (14.0-18.0) g/dL Hct 34.0 L (42-52) % MCV 93.9 (80-100) fL MCH 31.8 (25-34) pg MCHC 33.8 (32-36) g/dL RDW Std Deviation 44.8 (36.4-46.3) fL RDW Coeff of Alisson 13.0 (11.5-14.5) % Plt Count 387 (130-400) K/uL MPV 8.9 (7.4-10.4) fL Immature Gran % (Auto) 0.4 % Neut % (Auto) 70.3 % Lymph % (Auto) 15.8 % Scurry % (Auto) 12.0 % Eos % (Auto) 1.1 % Baso % (Auto) 0.4 % Neut # (Auto) 4.01 (1.4-6.5) K/uL Lymph # (Auto) 0.90 L (1.2-3.4) K/uL Scurry # (Auto) 0.68 H (0.11-0.59) K/uL Eos # (Auto) 0.06 (0-0.5) K/uL Baso # (Auto) 0.02 (0-0.2) K/uL Immature Gran # (Auto) 0.02 (0.00-0.02) K/uL Sodium 124 L (136-145) mmol/L Potassium 4.3 (3.5-5.1) mmol/L Chloride 92 L (98-107) mmol/L Carbon Dioxide 26 (21-32) mmol/L Anion Gap 6.0 (3-11) BUN 13 (7-18) mg/dl Creatinine 0.69 (0.6-1.4) mg/dl Est Cr Clr Drug Dosing 56.4 ml/min Est GFR ( Amer) 98.9 Est GFR (Non-Af Amer) 85.4 BUN/Creatinine Ratio 18.3 (10-20) Glucose 106 H (70-99) mg/dl Lactate 1.7 (0.4-2.0) mmol/L Calcium 8.4 L (8.5-10.1) mg/dl Magnesium 2.2 (1.8-2.4) mg/dl Total Bilirubin 0.5 (0.2-1) mg/dl AST 26 (15-37) U/L ALT 16 (12-78) U/L Alkaline Phosphatase 67 (45-117) U/L Troponin I < 0.015 (0-0.045) ng/ml Total Protein 6.7 (6.4-8.2) gm/dl Albumin 3.2 L (3.4-5.0) gm/dl Globulin 3.5 (2.5-4.0) gm/dl Albumin/Globulin Ratio 0.9 (0.9-2) TSH 2.340 (0.300-4.500) uIu/ml Diagnostic Findings CT chest wo con CT DOSE: 277.30 mGy.cm HISTORY: Pneumonia, aspiration, weight loss TECHNIQUE: Multiaxial CT images of the chest were performed without contrast. A dose lowering technique was utilized adhering to the principles of ALARA. COMPARISON: Chest 12/25/2019. FINDINGS: No pneumothorax. No pleural effusions. A few opacified distal right lower lobe bronchi. Near-complete opacification of the left lower lobe bronchi with mucoid material. Trace mucoid material within the trachea. Calcified granuloma within the left upper lobe on image 128. Patchy densities at the lung bases posteriorly with a few tree-in-bud nodular opacities within the base of the left lower lobe and a few faint small groundglass densities within the base of the right lower lobe. This likely represents a pneumonia and can be seen in the setting of aspiration given the opacified lower lobe bronchi. No suspicious lytic or blastic osseous lesions. Poststernotomy changes are noted. Limited views of the upper abdomen demonstrate a normal liver and spleen. Aortic valve prosthesis is again noted. The heart remains borderline enlarged. Edema/ascites within the fat-containing hiatal hernia. This is also unchanged. Moderate amount of well-formed stool within the colon. No mediastinal hilar lymphadenopathy. Normal caliber esophagus. Mild calcified plaque within the thoracic aorta. IMPRESSION: 1. Mucoid opacification of the bilateral lower lobe bronchi, left greater than right. There are also left greater than right airspace opacities within the lung bases posteriorly with a few tree-in-bud nodular opacities within the left lower lobe. These findings favor an aspiration pneumonia. 2. Mild edema/ascites within the fat-containing hiatus hernia. This remains unchanged. ACT 112: Negative or not required by law. Electronically signed by: Luisito Lorenzo M.D. 12/25/2019 7:17 PM Dictated: 12/25/191909 Transcribed: 12/25/191909 XR chest 1V portable HISTORY: weakness COMPARISON: Chest 11/25/2019. FINDINGS: No pneumothorax. No pleural effusions. The heart is normal in size. The lungs are clear. There are poststernotomy changes. 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 IMPRESSION: No acute process. ACT 112: Negative or not required by law. Electronically signed by: Luisito Lorenzo M.D. 12/25/2019 5:18 PM Dictated: 12/25/191717 Transcribed: 12/25/191717 ECG Additional Comments: The study shows NSR at 75bpm, left axis deviation, GJ=950, LJU=430, ZPw=913, RBBB, no acute ischemic changes Code Status & VTE Plan Code Status FULL CODE VTE Prophylaxis Plan VTE Prophylaxis will be ordered: Yes PG Care Time/CCT Total # of Minutes Spent Total Time Spent with Patient: Total time spent is greater than 50% in coordination of care (as documented) at patient's floor/unit and/or counseling patient: Coding Level of Care Code 61264 Initial Inpt Care Lvl 3 Diagnoses Hyponatremia E87.1 Aspiration into lower respiratory tract T17.800A Encounter type: initial encounter Hyperlipidemia E78.5 Hyperlipidemia type: unspecified Hypertension, benign I10 Single vessel coronary artery disease I25.10 History of aortic stenosis Z86.79 (1) Hyperlipidemia Hyperlipidemia type: unspecified Qualified Code(s): E78.5 - Hyperlipidemia, unspecified (2) Aspiration into lower respiratory tract Encounter type: initial encounter Qualified Code(s): T17.800A - Unspecified foreign body in other parts of respiratory tract causing asphyxiation, initial encounter
[2019-12-25 21:43] LABS: Appearance Urine Clear (Clear); Bilirubin Urine Negative (Negative); Blood Urine Negative (Negative); Color Urine Yellow; Glucose Urine UA Negative (Negative); Ketones Urine Negative (Negative); Leukocyte Esterase Urine Negative (Negative); Nitrite Urine Negative (Negative); Protein Urine Negative (Negative); Specific Gravity Urine 1.017 (1.000-1.030); Urobilinogen Urine Negative (Negative); pH Urine 5.5 (4.5-7.5)
[2019-12-25] MEDS ORDERED: bisacodyL 10 MG SUPP PR PRN (22:18)
[2019-12-25] MEDS ORDERED: PIPERACILLIN/TAZOBACTAM 4.5 GM in DEXTROSE 5% 100 ML IV ONE (22:30)
[2019-12-25] MEDS: ACETAMINOPHEN 325 MG TAB PO SCH (22:53)
[2019-12-25 23:07] LABS: BUN Creatinine Ratio 17.8 (10-20); Creatinine Clr Calc Pharmacy 76.4 ml/min; Est GFR (Non-African American) 96.7; Potassium 3.6 mmol/L (3.5-5.1)
[2019-12-25] MEDS: ENOXAPARIN INJ 30 MG/0.3 ML SYR SQ SCH (23:53)
[2019-12-26] MEDS: PIPERACILLIN/TAZOBACTAM 3.375 GM in DEXTROSE 5% 100 ML IV SCH ×3 (03:46→20:26)
[2019-12-26 07:27] LABS: Basophils # (auto) 0.01 K/uL (0-0.2); Basophils % (auto) 0.1 %; Eosinophils # (auto) 0.11 K/uL (0-0.5); Eosinophils % (auto) 1.3 %; Hematocrit (blood only) 31.5 % (42-52); Hemoglobin 10.8 g/dL (14.0-18.0); Immature Granulocytes # (auto) 0.02 K/uL (0.00-0.02); Immature Granulocytes % (auto) 0.2 %; Lymphocytes # (auto) 0.53 K/uL (1.2-3.4); Lymphocytes % (auto) 6.1 %; Mean Corpuscular Hemoglobin 31.9 pg (25-34); Mean Corpuscular Hgb Conc 34.3 g/dL (32-36); Mean Corpuscular Volume 92.9 fL (80-100); Mean Platelet Volume 8.9 fL (7.4-10.4); Monocytes # (auto) 0.49 K/uL (0.11-0.59); Monocytes % (auto) 5.7 %; Neutrophils # (auto) 7.51 K/uL (1.4-6.5); Neutrophils % (auto) 86.6 %; Platelet Count 315 K/uL (130-400); RDW Standard Deviation 44.1 fL (36.4-46.3); Red Blood Count 3.39 M/uL (4.7-6.1); White Blood Count 8.67 K/uL (4.8-10.8)
--- NOTE | 2019-12-26 07:53 | Electrocardiogram Report ---
Test Reason : Blood Pressure : / mmHG Vent. Rate : 075 BPM Atrial Rate : 075 BPM P-R Int : 190 ms QRS Dur : 148 ms QT Int : 424 ms P-R-T Axes : -11 -78 030 degrees QTc Int : 473 ms Poor data quality, interpretation may be adversely affected Normal sinus rhythm Left anterior fascicular block Right bundle branch block Abnormal ECG No previous ECGs available Confirmed by Jimmy Stern ([id number]) on 12/26/2019 7:53:21 AM Referred By: Omero Last Confirmed By:Jimmy Stern
[2019-12-26 07:54] LABS: BUN Creatinine Ratio 13.6 (10-20); Calcium 7.5 mg/dl (8.5-10.1); Creatinine Clr Calc Pharmacy 79.2 ml/min; Est GFR (African American) 113.9; Est GFR (Non-African American) 98.3; Potassium 3.8 mmol/L (3.5-5.1)
[2019-12-26] MEDS: ATORVASTATIN 20 MG TAB PO SCH (08:55)
[2019-12-26] MEDS: ASPIRIN 81 MG ECTAB PO SCH (08:55)
[2019-12-26] MEDS: POLYETHYLENE (MIRALAX) 17 GM PACK PO SCH (08:55)
[2019-12-26] MEDS: ACETAMINOPHEN 325 MG TAB PO SCH ×2 (08:55→20:27)
--- NOTE | 2019-12-26 12:17 | Pulmonary Consultation ---
Date of Consultation December 26, 2019 Assessment & Plan (1) Aspiration into lower respiratory tract: Impression: 89-year-old male with multiple medical comorbidities admitted with falls and weakness. He was incidentally noted to have slight degree of bronchial obstruction in the left lower lobe which was new compared to prior CT scan from last month. Is been admitted and placed on antibiotics and pulmonary was consulted for additional management. Recommendation: 1. Mucoid impaction: Given the fact that the patient's tracheobronchial tree was patent a month ago, I am not particularly concerned about sinister diagnoses. In addition, the patient is not really a candidate for invasive procedures given his medical comorbidities and frail status. At this point time I would favor conservative treatment with mucolytic's/Mucinex as well as flutter valve and incentive spirometry. If clinically warranted, follow-up CT scan could be obtained in 4 to 6 weeks to ascertain whether or not this abnormality has resolved. 2. Questionable pneumonia: The patient has not been febrile. His white count is normal. Procalcitonin was negative. I do not feel strongly about continuing antibiotics in the current case and would favor discontinuing them at this point in time. 3. Patient is undergoing evaluation by speech therapy for possible aspiration which I think is reasonable in light of his Parkinson's disease. I defer to them on recommendations for swallowing and feeding. 4. At this point time pulmonary will sign off. No indication for invasive procedures currently. Feel free to contact us if we can be of additional assistance. Encounter type: initial encounter Qualified Code(s): T17.800A - Unspecified foreign body in other parts of respiratory tract causing asphyxiatio n, initial encounter (2) Abnormal CT scan of lung: History of Present Illness Attending Physician: Barrera White MD History of Present Illness Asked by hospitalist to evaluate patient with an abnormal CT scan. History is obtained from review the electronic medical record as well as discussion with the patient. The patient is an 89-year-old male with a history of Parkinson's disease who was admitted with falls and weakness. He lives at home with his . He ambulates with the assistance of a wheeled walker. The patient is devoid of any significant respiratory complaints including shortness of breath or wheezing. He apparently had a coughing paroxysm yesterday and occasionally produces some clear to whitish phlegm. He is never had any hemoptysis. He is a lifelong non- smoker. Patient was brought to the emergency room with progressive weakness gait instability and falls as well as some unintentional weight loss and poor appetite. Blood pressures at also been low. Due to concern about aspiration a chest x-ray was performed which was unrevealing and was followed by a CT scan which revealed some slight mucoid impaction of the bilateral lower lobes more prominently on the left than the right. This prompted a pulmonary consultation. When I assessed the patient he is awake alert on room air. He offers no pulmonary complaints and actually states that he feels reasonably well currently. Allergies Allergy/AdvReac Type Severity Reaction Status Date / Time No Known Allergies Allergy Verified 12/25/19 20:06 Home Medications Home Medications Medication Instructions Recorded Confirmed Type aspirin 81 mg tablet,delayed 81 mg PO DAILY 02/16/19 12/25/19 History release atorvastatin 20 mg tablet 20 mg PO DAILY 02/16/19 12/25/19 History acetaminophen [Tylenol] 650 mg PO BID 12/25/19 12/25/19 History betamethasone dipropionate 1 applic TOPICAL BID PRN 12/25/19 12/25/19 History bisacodyl 5 mg PO DAILY PRN 12/25/19 12/25/19 History fkbjhpfvocj-zukcadizv-dsw C-Mn 1 cap PO UD 12/25/19 12/25/19 History [Glucosamine 1500 Complex] polyethylene glycol 3350 [Miralax] 17 g PO DAILY 12/25/19 12/25/19 History Patient History Medical History (Updated 12/26/19 @ 12:14 by Alex Tamez MD) Coronary artery disease History of aortic stenosis HTN (hypertension) Hyperlipidemia LDL goal <70 Parkinsons disease Surgical History (Updated 12/17/19 @ 11:28 by Jimmy Rodriguez, DO) H/O aortic valve replacement H/O hernia repair H/O right inguinal hernia repair (11/25/19) Laparoscopic release of SBO; Right Inguinal Recurrent Hernia Repair with Mesh Dr. Rodriguez 11/25/2019 S/P aortic aneurysm repair S/P CABG x 1 S/P hernia repair Family History Brother Hypertension Parkinson disease Social History Smoking Status: Never smoker Hx Alcohol Use: No Hx Substance Use: No Preferred Language: Sami Communication Ability: Effective Visual Impairment: No Limitations Hearing Ability: Normal [employer] Laboratory Director Required: No Beliefs That Will Affect Care: None marital status: Current Living Situation: Spouse current occupational status: retired Feels Safe at Home: Yes Childhood Exposure to Second-Hand Smoke: No Diet Comment: regular caffeine: Yes during the past year weight has: decreased > 10 lbs Dental Care, Regularly: No Physical Activity Frequency: 3-4 Times per Week Physical Activity Frequency Comment: walk Seatbelt Use: always Sunscreen Use: No (does not go out in the sun) Review of Systems Review of Systems: Please refer to admission H&P. No additions or deletions Physical Exam Constitutional: + thin and + frail appearing; no acute distress Neck: trachea midline, no thyromegaly Respiratory: normal respiratory effort, lungs clear to auscultation Cardiovascular: Rate/Rhythm: regular rate Heart Sounds: normal S1, normal S2 and + murmur Gastrointestinal (Abdomen): normal bowel sounds, soft, nontender, no hepatosplenomegaly Musculoskeletal: Extremities: extremities normal to inspection Skin: no rashes, warm and dry Neurologic: Resting pill-rolling tremor present in the right upper extremity Lymphatic: no cervical lymphadenopathy Results & Data Results & Data ([facility]) Vital Signs (Past 12 Hours) Vital Signs Temp Pulse Resp BP BP Pulse Ox 12/26/19 11:26 96/51 L 12/26/19 07:30 111/61 12/26/19 07:26 36.4 C L 67 16 87/45 L 99 Laboratory Results 12/26/19 07:08 12/26/19 07:08 Procalcitonin undetectable Diagnostic Findings Images were independently reviewed. Chest x-ray 12/25/2019 showed no acute abnormality. CT of the chest from 12/25/2019 demonstrated some mucoid impaction of the left lower lobe bronchi. This was new compared to prior film from October. Minimal airspace opacities identified. PG Care Time/CCT Total # of Minutes Spent Total Time Spent with Patient: Total time spent is greater than 50% in coordination of care (as documented) at patient's floor/unit and/or counseling patient: Coding Level of Care Code 17994 Initial Inpt Care Lvl 3 Diagnoses Aspiration into lower respiratory tract T17.800A Encounter type: initial encounter Abnormal CT scan of lung R91.8
[2019-12-26 14:33] LABS: BUN Creatinine Ratio 13.8 (10-20); Calcium 8.2 mg/dl (8.5-10.1); Creatinine Clr Calc Pharmacy 59.7 ml/min; Est GFR (African American) 101.4; Est GFR (Non-African American) 87.5; Potassium 3.9 mmol/L (3.5-5.1)
--- NOTE | 2019-12-26 14:40 | Hospitalist Progress Note ---
Date of Service December 26, 2019 Assessment & Plan (1) Parkinsons disease: Has been followed by his PCP. Previously seen by Dr. Orantes, but not for several years. Referral had been made earlier this year, but not yet seen. - Neurology consult to potentially initiate treatment. (2) Hyponatremia: Na = 124 on admission. (Most recently 134 on 11/25/19.), most likely contributing to patient's weakness and gait instability. - Urine osms indicate mild SIADH vs. low solute given rise from IV fluids. - Will stop IV fluids - Monitor sodium (3) Aspiration into lower respiratory tract: Patient with slight cough. No overt aspiration noted by family. CT chest on admission with mucoid opacification of the bilateral lower lobe bronchi, L>R. Also L>R airspace airspace opacities within the lung bases posteriorly with a few tree-in-bud nodular opacities within the LLL. - Supplemental O2 as needed, humidified - Stop Zosyn per pulmonology - Flutter valve, IS - Aspiration precautions - Pulmonary consultation re: possible bronchoscopy -> Seen on 12/25; no need for procedure. - Speech/Swallow evaluation (4) Hyperlipidemia: Chronic. - Continue Atorvastatin 20mg po daily (5) Hypertension, benign: Patient with reported history of HTN, recently low BPs at home. Was formerly on losartan and metoprolol which have since been discontinued. BP was 95/50. - Continue to monitor (6) Single vessel coronary artery disease: Chronic. Stable. Patient denies chest pain. EKG with no evidence of acute ischemia. - Continue ASA 81mg po daily - Continue atorvastatin 20mg po daily - Metoprolol and Losartan discontinued as above due to low blood pressures at home (7) History of aortic stenosis: S/p repair. - Cautious fluid management (8) DVT prophylaxis: Lovenox 30mg daily Admission and Anticipated Discharge Date Admission Date: December 25, 2019 Subjective Overall breathing comfortably. Still generally weak. No major issues. Reports no fevers/chills, chest pain, shortness of breath, abdominal pain, nausea, or vomiting. Physical Exam Constitutional: WD/WN, vitals as above Eyes: EOM intact bilaterally; no conjunctival abnormality ENMT: external ear and nose normal, oropharynx normal Neck: trachea midline, no thyromegaly normal visual inspection Respiratory: normal respiratory effort, lungs clear to auscultation no respiratory distress Cardiovascular: RRR, no murmur, no edema Gastrointestinal (Abdomen): Inspection/Auscultation: abdomen normal to inspection; abdomen not distended Musculoskeletal: no cyanosis or clubbing, extremities motor strength 5/5 Skin: no rashes, warm and dry Neurologic: moves all extremities and awake Psychiatric: Orientation: alert, oriented to person and cooperative Results & Data Results & Data ([facility]) Vital Signs (Past 12 Hours) Vital Signs Temp Pulse Resp BP BP Pulse Ox 12/26/19 11:26 96/51 L 12/26/19 07:30 111/61 12/26/19 07:26 36.4 C L 67 16 87/45 L 99 PG Care Time/CCT Total # of Minutes Spent Total Time Spent with Patient: Total time spent is greater than 50% in coordination of care (as documented) at patient's floor/unit and/or counseling patient: Coding Level of Care Code 90171 Subseq Hosp Care Lvl 3 Diagnoses Parkinsons disease G20 Hyponatremia E87.1 Aspiration into lower respiratory tract T17.800A Encounter type: initial encounter Hyperlipidemia E78.5 Hyperlipidemia type: unspecified Hypertension, benign I10 Single vessel coronary artery disease I25.10 History of aortic stenosis Z86.79 DVT prophylaxis Z29.9 (1) Aspiration into lower respiratory tract Encounter type: initial encounter Qualified Code(s): T17.800A - Unspecified foreign body in other parts of respiratory tract causing asphyxiation, initial encounter (2) Hyperlipidemia Hyperlipidemia type: unspecified Qualified Code(s): E78.5 - Hyperlipidemia, unspecified
--- NOTE | 2019-12-26 15:58 | Neurology Consultation ---
Date of Consultation December 26, 2019 History of Present Illness Attending Physician: Barrera White MD History of Present Illness Zhou Fajardo is an 89 yo man w/ PMH of HTN, HLD, CAD s/p CABG, severe aortic stenosis, recent SBO s/p surgery and known h/o Parkinson's disease who initially p/t [facility] with progressive weakness, gait instability and falls the several days prior. Allergies Allergy/AdvReac Type Severity Reaction Status Date / Time No Known Allergies Allergy Verified 12/25/19 20:06 Home Medications Home Medications Medication Instructions Recorded Confirmed Type aspirin 81 mg tablet,delayed 81 mg PO DAILY 02/16/19 12/25/19 History release atorvastatin 20 mg tablet 20 mg PO DAILY 02/16/19 12/25/19 History acetaminophen [Tylenol] 650 mg PO BID 12/25/19 12/25/19 History betamethasone dipropionate 1 applic TOPICAL BID PRN 12/25/19 12/25/19 History bisacodyl 5 mg PO DAILY PRN 12/25/19 12/25/19 History gbxkibrljwr-jzswkipwb-ivy C-Mn 1 cap PO UD 12/25/19 12/25/19 History [Glucosamine 1500 Complex] polyethylene glycol 3350 [Miralax] 17 g PO DAILY 12/25/19 12/25/19 History Patient History Medical History (Updated 12/26/19 @ 14:39 by Barrera White MD) Coronary artery disease History of aortic stenosis HTN (hypertension) Hyperlipidemia LDL goal <70 Parkinsons disease Surgical History (Updated 12/17/19 @ 11:28 by Jimmy Rodriguez, DO) H/O aortic valve replacement H/O hernia repair H/O right inguinal hernia repair (11/25/19) Laparoscopic release of SBO; Right Inguinal Recurrent Hernia Repair with Mesh Dr. Rodriguez 11/25/2019 S/P aortic aneurysm repair S/P CABG x 1 S/P hernia repair Family History Brother Hypertension Parkinson disease Social History Smoking Status: Never smoker Hx Alcohol Use: No Hx Substance Use: No Preferred Language: Indian Communication Ability: Effective Visual Impairment: No Limitations Hearing Ability: Normal Supervisor [employer] Required: No Beliefs That Will Affect Care: None marital status: Current Living Situation: Spouse current occupational status: retired Feels Safe at Home: Yes Childhood Exposure to Second-Hand Smoke: No Diet Comment: regular caffeine: Yes during the past year weight has: decreased > 10 lbs Dental Care, Regularly: No Physical Activity Frequency: 3-4 Times per Week Physical Activity Frequency Comment: walk Seatbelt Use: always Sunscreen Use: No (does not go out in the sun) Results & Data ([facility]) Vital Signs (Past 12 Hours) Vital Signs Temp Pulse Pulse Resp BP BP Pulse Ox 12/26/19 15:19 36.5 C 80 17 92/55 L 96 12/26/19 11:26 96/51 L 12/26/19 07:30 111/61 12/26/19 07:26 36.4 C L 67 16 87/45 L 99 PG Care Time/CCT Total # of Minutes Spent Total Time Spent with Patient: Total time spent is greater than 50% in coordination of care (as documented) at patient's floor/unit and/or counseling patient: Coding
--- NOTE | 2019-12-26 20:07 | Emergency Department Note ---
History of Present Illness General Chief complaint: Weakness Stated complaint: WEAKNESS Source: patient, EMS and RN notes reviewed Mode of arrival: ambulatory Limitations: no limitations History of Present Illness Provider complaint: Weakness This patient is an 89-year-old male who presents emergency department with complaints of generalized weakness, shortness of breath over the last week primarily. On November 24 the patient had surgery secondary to small bowel obstruction and an incarcerated right inguinal hernia. Patient states he has become increasingly weak but denies fevers. His appetite has been poor but he has been trying. He states he is drinking liquids. Patient lives at home with his elderly who he states is "feeling her age." He denies any clear fevers, significant abdominal pain or diarrhea. He denies any blood in his stools. Patient does admit to occasional coughing when eating, but denies any significant choking episodes or vomiting. Home Medications Home Medications Medication Instructions Recorded Confirmed Type aspirin 81 mg tablet,delayed 81 mg PO DAILY 02/16/19 12/25/19 History release atorvastatin 20 mg tablet 20 mg PO DAILY 02/16/19 12/25/19 History acetaminophen [Tylenol] 650 mg PO BID 12/25/19 12/25/19 History betamethasone dipropionate 1 applic TOPICAL BID PRN 12/25/19 12/25/19 History bisacodyl 5 mg PO DAILY PRN 12/25/19 12/25/19 History ruboidoarmc-pjgahmroo-bny C-Mn 1 cap PO UD 12/25/19 12/25/19 History [Glucosamine 1500 Complex] polyethylene glycol 3350 [Miralax] 17 g PO DAILY 12/25/19 12/25/19 History Allergies Allergy/AdvReac Type Severity Reaction Status Date / Time No Known Allergies Allergy Verified 12/25/19 20:06 Past Med/Surg History Medical History Coronary artery disease History of aortic stenosis HTN (hypertension) Hyperlipidemia LDL goal <70 Parkinsons disease Surgical History H/O aortic valve replacement H/O hernia repair H/O right inguinal hernia repair (11/25/19) Laparoscopic release of SBO; Right Inguinal Recurrent Hernia Repair with Mesh Dr. Rodriguez 11/25/2019 S/P aortic aneurysm repair S/P CABG x 1 S/P hernia repair Family History Brother Hypertension Parkinson disease Social History Smoking Status: Never smoker Hx Alcohol Use: No Hx Substance Use: No Preferred Language: Fijian Communication Ability: Effective Visual Impairment: No Limitations Hearing Ability: Normal Motion Study Technician Required: No Beliefs That Will Affect Care: None marital status: Current Living Situation: Spouse current occupational status: retired Feels Safe at Home: Yes Childhood Exposure to Second-Hand Smoke: No Diet Comment: regular caffeine: Yes during the past year weight has: decreased > 10 lbs Dental Care, Regularly: No Physical Activity Frequency: 3-4 Times per Week Physical Activity Frequency Comment: walk Seatbelt Use: always Sunscreen Use: No (does not go out in the sun) Review of Systems See HPI for pertinent positives & negatives. and A total of 10 systems reviewed and were otherwise negative Physical Exam Vital Signs Vital Signs - 24 hr 12/25/19 20:30 Pulse Rate 69 Pulse Rate from SpO2 Sensor 68 Respiratory Rate 12 Blood Pressure 136/83 Blood Pressure Mean 97 Pulse Oximetry 100 Oxygen Delivery Method Nasal Cannula Oxygen Flow Rate 3 Vital signs reviewed. General: Elderly, chronically ill-appearing and frail 89-year-old male, in no significant distress. HEENT: No scleral icterus, PERRLA, neck supple. Atraumatic. Cardiovascular: Regular rate and rhythm, no extra sounds. Pulmonary: Coarse breath sounds to the mid/lower lung mahoney bilaterally, normal work of breathing. Moist cough occasionally Abdomen: Soft, nontender, nondistended, positive bowel sounds. Midline incision that appears to be well-healing. Minimal surrounding ecchymosis. Musculoskeletal: Atraumatic, no peripheral edema. Neurologic: Patient awake alert and oriented x 3 Skin: Warm, dry, no rash Course Administered Medications Acetaminophen (Acetaminophen 325 Mg Tab) 650 mg PO BID TJ Stop: 01/24/20 22:59 Last Admin: 12/26/19 20:27 Dose: 650 mg Documented by: [id number] Admin: 12/26/19 08:55 Dose: 650 mg Documented by: [id number] Admin: 12/25/19 22:53 Dose: 650 mg Documented by: [id number] Aspirin (Aspirin 81 Mg Ectab) 81 mg PO DAILY TJ Stop: 01/25/20 08:59 Last Admin: 12/26/19 08:55 Dose: 81 mg Documented by: [id number] Atorvastatin Calcium (Atorvastatin 20 Mg Tab) 20 mg PO DAILY TJ Stop: 01/25/20 08:59 Last Admin: 12/26/19 08:55 Dose: 20 mg Documented by: [id number] Enoxaparin Sodium (Enoxaparin Inj 30 Mg/0.3 Ml Syr) 30 mg SQ Q24H TJ Stop: 01/24/20 22:59 Last Admin: 12/26/19 20:27 Dose: 30 mg Documented by: [id number] Admin: 12/25/19 23:53 Dose: 30 mg Documented by: [id number] Guaifenesin (Guaifenesin 600 Mg Tabcr) 1,200 mg PO Q12 TJ Stop: 01/25/20 20:59 Last Admin: 12/26/19 20:26 Dose: 1,200 mg Documented by: [id number] Piperacillin Sod/Tazobactam (Sod 3.375 gm/ Dextrose) 115 mls @ 28.75 mls/hr IV Q8H [facility]; Protocol Stop: 01/02/20 03:59 Last Admin: 12/26/19 20:26 Dose: 28.8 mls/hr Documented by: [id number] Infusion: 12/26/19 16:20 Dose: 0 mls/hr Documented by: [id number] Admin: 12/26/19 12:19 Dose: 28.8 mls/hr Documented by: [id number] Infusion: 12/26/19 07:18 Dose: 0 mls/hr Documented by: [id number] Admin: 12/26/19 03:46 Dose: 28.8 mls/hr Documented by: [id number] Polyethylene Glycol (Polyethylene (Miralax) 17 Gm Pack) 17 gm PO DAILY TJ Stop: 01/25/20 08:59 Last Admin: 12/26/19 08:55 Dose: 17 gm Documented by: [id number] Discontinued Medications Sodium Chloride (Nss 1000ml) 1,000 mls @ 125 mls/hr IV .Q8H TJ Stop: 12/26/19 00:59 Last Infusion: 12/25/19 22:29 Dose: 0 mls/hr Documented by: [id number] Admin: 12/25/19 17:30 Dose: 125 mls/hr Documented by: [id number] Ampicillin Sodium/Sulbactam Sodium 3,000 mg/ Sodium Chloride 108 mls @ 216 mls/hr IV NOW ONE Stop: 12/25/19 19:59 Last Infusion: 12/25/19 21:25 Dose: 0 mls/hr Documented by: [id number] Admin: 12/25/19 20:33 Dose: 216 mls/hr Documented by: [id number] Sodium Chloride (Nss 1000ml) 1,000 mls @ 125 mls/hr IV .Q8H TJ Stop: 12/26/19 06:11 Last Infusion: 12/26/19 07:18 Dose: 0 mls/hr Documented by: [id number] Infusion: 12/25/19 23:39 Dose: 125 mls/hr Documented by: [id number] Infusion: 12/25/19 23:24 Dose: 125 mls/hr Documented by: [id number] Infusion: 12/25/19 22:48 Dose: 0 mls/hr Documented by: [id number] Admin: 12/25/19 22:44 Dose: 125 mls/hr Documented by: [id number] Piperacillin Sod/Tazobactam (Sod 4.5 gm/ Dextrose) 120 mls @ 200 mls/hr IV ONE ONE; Protocol Stop: 12/25/19 23:05 Last Infusion: 12/25/19 23:24 Dose: 0 mls/hr Documented by: [id number] Admin: 12/25/19 22:48 Dose: 200 mls/hr Documented by: [id number] Medical Decision Making Differential Diagnosis Differential diagnosis of this patient's presentation includes UTI, pneumonia, aspiration, ACS, electrolyte abnormality, anemia Medical Records Attestation: I reviewed the patient's medical records. Home Medications Current Medication List: was personally reviewed by me Laboratory Data Attestation: I reviewed the patient's lab results. Result diagrams: 12/26/19 07:08 12/26/19 14:01 Lab Results 12/25/19 12/25/19 12/25/19 Range/Units 17:11 17:11 17:11 WBC 5.69 (4.8-10.8) K/uL RBC 3.62 L (4.7-6.1) M/uL Hgb 11.5 L (14.0-18.0) g/dL Hct 34.0 L (42-52) % MCV 93.9 (80-100) fL MCH 31.8 (25-34) pg MCHC 33.8 (32-36) g/dL RDW Std Deviation 44.8 (36.4-46.3) fL RDW Coeff of Alisson 13.0 (11.5-14.5) % Plt Count 387 (130-400) K/uL MPV 8.9 (7.4-10.4) fL Immature Gran % (Auto) 0.4 % Neut % (Auto) 70.3 % Lymph % (Auto) 15.8 % Tyrrell % (Auto) 12.0 % Eos % (Auto) 1.1 % Baso % (Auto) 0.4 % Neut # (Auto) 4.01 (1.4-6.5) K/uL Lymph # (Auto) 0.90 L (1.2-3.4) K/uL Tyrrell # (Auto) 0.68 H (0.11-0.59) K/uL Eos # (Auto) 0.06 (0-0.5) K/uL Baso # (Auto) 0.02 (0-0.2) K/uL Immature Gran # (Auto) 0.02 (0.00-0.02) K/uL Sodium 124 L (136-145) mmol/L Potassium 4.3 (3.5-5.1) mmol/L Chloride 92 L (98-107) mmol/L Carbon Dioxide 26 (21-32) mmol/L Anion Gap 6.0 (3-11) BUN 13 (7-18) mg/dl Creatinine 0.69 (0.6-1.4) mg/dl Est Cr Clr Drug Dosing 56.4 ml/min Est GFR ( Amer) 98.9 Est GFR (Non-Af Amer) 85.4 BUN/Creatinine Ratio 18.3 (10-20) Glucose 106 H (70-99) mg/dl Lactate 1.7 (0.4-2.0) mmol/L Calcium 8.4 L (8.5-10.1) mg/dl Magnesium 2.2 (1.8-2.4) mg/dl Total Bilirubin 0.5 (0.2-1) mg/dl AST 26 (15-37) U/L ALT 16 (12-78) U/L Alkaline Phosphatase 67 (45-117) U/L Troponin I < 0.015 (0-0.045) ng/ml Total Protein 6.7 (6.4-8.2) gm/dl Albumin 3.2 L (3.4-5.0) gm/dl Globulin 3.5 (2.5-4.0) gm/dl Albumin/Globulin Ratio 0.9 (0.9-2) TSH 2.340 (0.300-4.500) uIu/ml Imaging Data Radiologist's Impression: XR chest 1V portable HISTORY: weakness COMPARISON: Chest 11/25/2019. FINDINGS: No pneumothorax. No pleural effusions. The heart is normal in size. The lungs are clear. There are poststernotomy changes. 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 IMPRESSION: No acute process. ACT 112: Negative or not required by law. Electronically signed by: Luisito Lorenzo M.D. 12/25/2019 5:18 PM Dictated: 12/25/191717 Transcribed: 12/25/191717 CT chest wo con CT DOSE: 277.30 mGy.cm HISTORY: Pneumonia, aspiration, weight loss TECHNIQUE: Multiaxial CT images of the chest were performed without contrast. A dose lowering technique was utilized adhering to the principles of ALARA. COMPARISON: Chest 12/25/2019. FINDINGS: No pneumothorax. No pleural effusions. A few opacified distal right lower lobe bronchi. Near-complete opacification of the left lower lobe bronchi with mucoid material. Trace mucoid material within the trachea. Calcified granuloma within the left upper lobe on image 128. Patchy densities at the lung bases posteriorly with a few tree-in-bud nodular opacities within the base of the left lower lobe and a few faint small groundglass densities within the base of the right lower lobe. This likely represents a pneumonia and can be seen in the setting of aspiration given the opacified lower lobe bronchi. No suspicious lytic or blastic osseous lesions. Poststernotomy changes are noted. Limited views of the upper abdomen demonstrate a normal liver and spleen. Aortic valve prosthesis is again noted. The heart remains borderline enlarged. Edema/ascites within the fat-containing hiatal hernia. This is also unchanged. Moderate amount of well-formed stool within the colon. No mediastinal hilar lymphadenopathy. Normal caliber esophagus. Mild calcified plaque within the thoracic aorta. IMPRESSION: 1. Mucoid opacification of the bilateral lower lobe bronchi, left greater than right. There are also left greater than right airspace opacities within the lung bases posteriorly with a few tree-in-bud nodular opacities within the left lower lobe. These findings favor an aspiration pneumonia. 2. Mild edema/ascites within the fat-containing hiatus hernia. This remains unchanged. ACT 112: Negative or not required by law. Electronically signed by: Luisito Lorenzo M.D. 12/25/2019 7:17 PM Dictated: 12/25/191909 Transcribed: 12/25/191909 ECG Data Attestation: I personally reviewed and interpreted this ECG as follows: Indication: + weakness Rate (beats per minute): 75 Rhythm: + normal sinus ECG Intervals/blocks: + Left anterior fascicular block and + Right Bundle branch block ECG ST segments: + Normal ST segments ECG Findings: no PACs and no PVCs Blood Pressure Blood Pressure Findings: Elevated blood pressure Blood Pressure Disposition: further management by hospitalist LIT Narrative This patient was evaluated and appeared to be in no significant distress. Physical examination is consistent with a generalized weakness with some coarse breath sounds bilaterally. An order for cardiac monitoring was placed and the patient was found to be in a normal sinus rhythm at 75 bpm. Chest x-ray was performed and is negative for acute pathology. Patient was hydrated with normal saline solution. CT scan of the chest was performed as the patient's presentation is concerning for aspiration. This study is consistent with left greater than right mucoid opacification of the bilateral lower bronchi. Patient's laboratory work is fairly reassuring. He was medicated with IV Zosyn after blood cultures were performed. Case was discussed with Dr. Drake who will evaluate the patient for further management. Impression & Plan Aspiration into lower respiratory tract Discharge Plan Visit Data Chief Complaint: Weakness Stated Complaint: WEAKNESS ED Provider: Joanne Jimenez Discharge Problem: Aspiration into lower respiratory tract Patient Disposition: Admitted As Inpatient Discharge Instructions Interventions: ED Discharge Assessment Last Done: 12/25/19 21:54 Discharge Problem: Aspiration into lower respiratory tract Qualifiers: Encounter type: initial encounter Qualified Code(s): T17.800A - Unspecified fo reign body in other parts of respiratory tract causing asphyxiation, initial encounter
[2019-12-26] MEDS: guaiFENesin 600 MG TABCR PO SCH (20:26)
[2019-12-26] MEDS: ENOXAPARIN INJ 30 MG/0.3 ML SYR SQ SCH (20:27)
[2019-12-27] MEDS: PIPERACILLIN/TAZOBACTAM 3.375 GM in DEXTROSE 5% 100 ML IV SCH ×2 (03:34→12:33)
[2019-12-27 07:38] LABS: Hematocrit (blood only) 31.2 % (42-52); Hemoglobin 10.6 g/dL (14.0-18.0); Mean Corpuscular Hemoglobin 31.7 pg (25-34); Mean Corpuscular Volume 93.4 fL (80-100); Mean Platelet Volume 9.1 fL (7.4-10.4); Platelet Count 297 K/uL (130-400); RDW Standard Deviation 44.8 fL (36.4-46.3); Red Blood Count 3.34 M/uL (4.7-6.1); White Blood Count 6.49 K/uL (4.8-10.8)
[2019-12-27 08:04] LABS: BUN Creatinine Ratio 14.3 (10-20); Calcium 8.1 mg/dl (8.5-10.1); Creatinine Clr Calc Pharmacy 63.6 ml/min; Est GFR (African American) 104.1; Est GFR (Non-African American) 89.8; Phosphorus 2.9 mg/dl (2.5-4.9); Potassium 4.4 mmol/L (3.5-5.1)
[2019-12-27] MEDS: guaiFENesin 600 MG TABCR PO SCH ×2 (09:16→19:59)
[2019-12-27] MEDS: POLYETHYLENE (MIRALAX) 17 GM PACK PO SCH (09:16)
[2019-12-27] MEDS: ASPIRIN 81 MG ECTAB PO SCH (09:16)
[2019-12-27] MEDS: ACETAMINOPHEN 325 MG TAB PO SCH ×2 (09:17→19:59)
[2019-12-27] MEDS: ATORVASTATIN 20 MG TAB PO SCH (09:17)
--- NOTE | 2019-12-27 12:14 | Hospitalist Progress Note ---
Date of Service December 27, 2019 Assessment & Plan (1) Parkinsons disease: Has been followed by his PCP. Seen by Dr. Ruchi Aguilar of [facility] on 12/17/2019. Discussed with Dr. Quiroga on 12/25. Plan had been to start Sinemet 25mg - 100 mg 1.5 tablets PO BID for 1 week, then increase to TID if tolerating. However, he counseled NOT starting in the hospital as he feels patient should be at his considered "baseline" before starting this medication as it can have BP effects and delirium effects as well. - Hold Sinemet at this time. (2) Hyponatremia: Na = 124 on admission. (Most recently 134 on 11/25/19.), most likely contributing to patient's weakness and gait instability. - Urine osms indicate mild SIADH vs. low solute given rise from IV fluids. - Repeat Na and urine osms on 12/26 indicate low solute. - Will start protein shakes; mild fluid restriction. (3) Aspiration into lower respiratory tract: Patient with slight cough. No overt aspiration noted by family. CT chest on admission with mucoid opacification of the bilateral lower lobe bronchi, L>R. Also L>R airspace airspace opacities within the lung bases posteriorly with a few tree-in-bud nodular opacities within the LLL. - Supplemental O2 as needed, humidified - Stop Zosyn per pulmonology - Flutter valve, IS - Aspiration precautions - Pulmonary consultation re: possible bronchoscopy -> Seen on 12/25; no need for procedure. - Speech/Swallow evaluation on 12/25 felt to major aspiration concerns. Continue regular diet. (4) Hyperlipidemia: Chronic. - Continue Atorvastatin 20mg po daily (5) Hypertension, benign: Patient with reported history of HTN, recently low BPs at home. Was formerly on losartan and metoprolol which have since been discontinued. BP is 115/60. - Continue to monitor -> Improving with hospital diet/supplements. 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 Stable. Patient denies chest pain. EKG with no evidence of acute ischemia. - Continue ASA 81mg po daily - Continue atorvastatin 20mg po daily - Metoprolol and losartan discontinued as above due to low blood pressures at home (7) History of aortic stenosis: S/p repair. - Cautious fluid management (8) DVT prophylaxis: Lovenox 30mg daily Admission and Anticipated Discharge Date Admission Date: December 25, 2019 Subjective Doing well today. No shortness of breath, no chest pain. Reports some dry cough that sometimes is wetter in the morning, but only bringing up saliva. Reports no fevers/chills, chest pain, shortness of breath, abdominal pain, nausea, or vomiting. Physical Exam Constitutional: WD/WN, vitals as above Eyes: EOM intact bilaterally; no conjunctival abnormality ENMT: external ear and nose normal, oropharynx normal Neck: trachea midline, no thyromegaly normal visual inspection Respiratory: normal respiratory effort, lungs clear to auscultation no respiratory distress Cardiovascular: RRR, no murmur, no edema Gastrointestinal (Abdomen): Inspection/Auscultation: abdomen normal to inspection; abdomen not distended Musculoskeletal: Extremities: extremities normal to inspection (But thin) Skin: no rashes, warm and dry Neurologic: moves all extremities and awake Motor/Sensory: + tremor (Pill- rolling) and + abnormal movement (Cogwheeling rigidity) Psychiatric: Orientation: alert, oriented to person and cooperative Results & Data Results & Data ([facility]) Vital Signs (Past 12 Hours) Vital Signs Temp Pulse Resp BP Pulse Ox 12/27/19 07:45 36.5 C 61 16 116/63 96 PG Care Time/CCT Total # of Minutes Spent Total Time Spent with Patient: Total time spent is greater than 50% in co ordination of care (as documented) at patient's floor/unit and/or counseling patient: Coding Level of Care Code 35871 Subseq Hosp Care Lvl 2 Diagnoses Parkinsons disease G20 Hyponatremia E87.1 Aspiration into lower respiratory tract T17.800A Encounter type: initial encounter Hyperlipidemia E78.5 Hyperlipidemia type: unspecified Hypertension, benign I10 Single vessel coronary artery disease I25.10 History of aortic stenosis Z86.79 DVT prophylaxis Z29.9 (1) Aspiration into lower respiratory tract Encounter type: initial encounter Qualified Code(s): T17.800A - Unspecified foreign body in other parts of respiratory tract causing asphyxiation, initial encounter (2) Hyperlipidemia Hyperlipidemia type: unspecified Qualified Code(s): E78.5 - Hyperlipidemia, unspecified
[2019-12-27] MEDS: ENOXAPARIN INJ 30 MG/0.3 ML SYR SQ SCH (22:06)
[2019-12-28 07:52] LABS: BUN Creatinine Ratio 16.9 (10-20); Calcium 7.9 mg/dl (8.5-10.1); Creatinine Clr Calc Pharmacy 86.2 ml/min; Est GFR (African American) 117.9; Est GFR (Non-African American) 101.7; Magnesium 1.9 mg/dl (1.8-2.4); Potassium 4.2 mmol/L (3.5-5.1)
[2019-12-28] MEDS: guaiFENesin 600 MG TABCR PO SCH ×2 (08:04→21:06)
[2019-12-28] MEDS: ASPIRIN 81 MG ECTAB PO SCH (08:05)
[2019-12-28] MEDS: ATORVASTATIN 20 MG TAB PO SCH (08:05)
[2019-12-28] MEDS: ACETAMINOPHEN 325 MG TAB PO SCH ×2 (08:11→21:05)
[2019-12-28] MEDS: POLYETHYLENE (MIRALAX) 17 GM PACK PO SCH (08:11)
[2019-12-28 13:34] LABS: Appearance Urine Clear (Clear); Bilirubin Urine Negative (Negative); Blood Urine Negative (Negative); Color Urine Yellow; Glucose Urine UA Negative (Negative); Ketones Urine Negative (Negative); Leukocyte Esterase Urine Negative (Negative); Nitrite Urine Negative (Negative); Protein Urine Negative (Negative); Specific Gravity Urine 1.017 (1.000-1.030); Urobilinogen Urine Positive (Negative); pH Urine 7.5 (4.5-7.5)
--- NOTE | 2019-12-28 14:41 | Hospitalist Progress Note ---
Date of Service December 28, 2019 Assessment & Plan (1) Parkinsons disease: Has been followed by his PCP. Seen by Dr. Ruchi Aguilar of [facility] on 12/17/2019. Discussed with Dr. Quiroga on 12/25. Plan had been to start Sinemet 25mg - 100 mg 1.5 tablets PO BID for 1 week, then increase to TID if tolerating. However, he counseled NOT starting in the hospital as he feels patient should be at his considered "baseline" before starting this medication as it can have BP effects and delirium effects as well. - Hold Sinemet at this time. - He reports voiding 4-5 times overnight which is NOT new for him. PVR was only 6 mL. Likely due to autonomic dysfunction or detrusor overactivity from [place]. UpToDate reports that tertiary amine anticholinergic such as solifenacin (Vesicare) may be beneficial. Discussing with neurology. (2) Hyponatremia: Na = 124 on admission. (Most recently 134 on 11/25/19.), most likely contributing to patient's weakness and gait instability. - Urine osms indicate SIADH vs. low solute given rise from IV fluids. 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 - On protein shakes & fluid restriction. Stable on 12/27 at 128. No symptoms. (3) Aspiration into lower respiratory tract: Patient with slight cough. No overt aspiration noted by family. CT chest on admission with mucoid opacification of the bilateral lower lobe bronchi, L>R. Also L>R airspace airspace opacities within the lung bases posteriorly with a few tree-in-bud nodular opacities within the LLL. - Supplemental O2 as needed, humidified - Stop Zosyn per pulmonology - Flutter valve, IS - Aspiration precautions - Pulmonary consultation re: possible bronchoscopy -> Seen on 12/25; no need for procedure. - Speech/Swallow evaluation on 12/25 felt to major aspiration concerns. Continue regular diet. (4) Hyperlipidemia: Chronic. - Continue atorvastatin 20mg po daily (5) Hypertension, benign: Patient with reported history of HTN, recently low BPs at home. Was formerly on losartan and metoprolol which have since been discontinued. BP is 140/70. - Continue to monitor -> Improving with hospital diet/supplements. 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 Stable. Patient denies chest pain. EKG with no evidence of acute ischemia. - Continue ASA 81mg po daily - Continue atorvastatin 20mg po daily - Metoprolol and losartan discontinued as above due to low blood pressures at home (7) History of aortic stenosis: S/p repair. - Cautious fluid management (8) DVT prophylaxis: Lovenox 30mg daily Admission and Anticipated Discharge Date Admission Date: December 25, 2019 Subjective Doing well today. No major concerns other than frequent urination overnight. Physical Exam Constitutional: WD/WN, vitals as above Eyes: EOM intact bilaterally; no conjunctival abnormality ENMT: external ear and nose normal, oropharynx normal Neck: trachea midline, no thyromegaly normal visual inspection Respiratory: normal respiratory effort, lungs clear to auscultation no respiratory distress Cardiovascular: RRR, no murmur, no edema Gastrointestinal (Abdomen): Inspection/Auscultation: abdomen normal to inspection; abdomen not distended Musculoskeletal: no cyanosis or clubbing, extremities motor strength 5/5 Extremities: extremities normal to inspection (But thin) Skin: no rashes, warm and dry Neurologic: moves all extremities and awake Motor/Sensory: + tremor (Pill- rolling) and + abnormal movement (Cogwheeling rigidity) Psychiatric: Orientation: alert, oriented to person and cooperative Results & Data Results & Data ([facility]) Vital Signs (Past 12 Hours) Vital Signs Temp Pulse Resp BP Pulse Ox 12/28/19 07:43 36.8 C 58 L 18 139/72 94 PG Care Time/CCT Total # of Minutes Spent Total Time Spent with Patient: Total time spent is greater than 50% in coordination of care (as documented) at patient's floor/unit and/or counseling patient: Coding Level of Care Code 68866 Subseq Hosp Care Lvl 3 Diagnoses Parkinsons disease G20 Hyponatremia E87.1 Aspiration into lower respiratory tract T17.800A Encounter type: initial encounter Hyperlipidemia E78.5 Hyperlipidemia type: unspecified Hypertension, benign I10 Single vessel coronary artery disease I25.10 History of aortic stenosis Z86.79 DVT prophylaxis Z29.9 (1) Aspiration into lower respiratory tract Encounter type: initial encounter Qualified Code(s): T17.800A - Unspecified foreign body in other parts of respiratory tract causing asphyxiation, initial encounter (2) Hyperlipidemia Hyperlipidemia type: unspecified Qualified Code(s): E78.5 - Hyperlipidemia, unspecified
[2019-12-28] MEDS ORDERED: TOLTERODINE TARTRATE 2 MG TAB PO SCH (21:00)
[2019-12-28] MEDS ORDERED: TOLTERODINE TARTRATE 1 MG TAB PO SCH (21:00)
[2019-12-28] MEDS: ENOXAPARIN INJ 30 MG/0.3 ML SYR SQ SCH (23:48)
[2019-12-29 06:56] LABS: Hematocrit (blood only) 31.7 % (42-52); Hemoglobin 10.8 g/dL (14.0-18.0); Mean Corpuscular Hemoglobin 31.5 pg (25-34); Mean Corpuscular Hgb Conc 34.1 g/dL (32-36); Mean Corpuscular Volume 92.4 fL (80-100); Mean Platelet Volume 9.1 fL (7.4-10.4); Platelet Count 338 K/uL (130-400); RDW Standard Deviation 44.1 fL (36.4-46.3); Red Blood Count 3.43 M/uL (4.7-6.1); White Blood Count 5.88 K/uL (4.8-10.8)
[2019-12-29 07:22] LABS: BUN Creatinine Ratio 28.5 (10-20); Creatinine Clr Calc Pharmacy 82.5 ml/min; Est GFR (African American) 115.8; Est GFR (Non-African American) 99.9; Potassium 4.4 mmol/L (3.5-5.1)
[2019-12-29] MEDS: POLYETHYLENE (MIRALAX) 17 GM PACK PO SCH (08:47)
[2019-12-29] MEDS: ASPIRIN 81 MG ECTAB PO SCH (08:56)
[2019-12-29] MEDS: guaiFENesin 600 MG TABCR PO SCH ×2 (08:56→20:50)
[2019-12-29] MEDS: ACETAMINOPHEN 325 MG TAB PO SCH ×2 (08:56→20:49)
[2019-12-29] MEDS: ATORVASTATIN 20 MG TAB PO SCH (08:56)
--- NOTE | 2019-12-29 12:21 | Nephrology Consultation ---
Date of Consultation December 29, 2019 Assessment & Plan (1) Hyponatremia: * Hypoosmolar hyponatremia (calculated osmolality 262). Normal thyroid and renal function. No clinical evidence of adrenal insufficiency. No evidence of CHF or hepatic failure. No pulmonary malignancy on recent chest CT. Elevated Uosm suggestive of SIADH * Start NaCl 2 g po BID * Start Furosemide 20 mg po BID to lower Uosm * Recheck PRP, Uosm in am * Recommend health maintenance screening: PSA, FOBT, colonoscopy? if not recently completed (2) HTN (hypertension): * BP has been fairly labile * Will monitor closely following addition of NaCl and loop diuretic (3) Abnormal weight loss: * Consider health maintenance screening as noted above * Consider swallowing study (4) Parkinsons disease: * Await Neurology input History of Present Illness Reason for Consultation: Hyponatremia Attending Physician: Barrera White MD History of Present Illness Mr. Fajardo is an 89 year old white male who is seen at the request of Dr. White for evaluation of hyponatremia. Medical records in the EMR were reviewed and are summarized as follows: Mr. Fajardo has a h/o ASCVD, aortic stenosis s/p repair, HTN and Parkinson's disease. He was hospitalized 11/18 for surgical repair of an incarcerated R inguinal hernia. He was readmitted 12/26/19 for evaluation of weakness. Mr. Fajardo was found to have weight loss w/ muscle wasting. His serum sodium was noted to be 126 - 130 mmol/L. TSH was normal. No hypotension to suggest adrenal insufficiency. No clinical evidence of CHF. LFT's were within normal limits. Uosm has been inappropriately elevated in 330 - 530 mOsm/kg range. Allergies Allergy/AdvReac Type Severity Reaction Status Date / Time No Known Allergies Allergy Verified 12/25/19 20:06 Home Medications Home Medications Medication Instructions Recorded Confirmed Type aspirin 81 mg tablet,delayed 81 mg PO DAILY 02/16/19 12/25/19 History release atorvastatin 20 mg tablet 20 mg PO DAILY 02/16/19 12/25/19 History acetaminophen [Tylenol] 650 mg PO BID 12/25/19 12/25/19 History betamethasone dipropionate 1 applic TOPICAL BID PRN 12/25/19 12/25/19 History bisacodyl 5 mg PO DAILY PRN 12/25/19 12/25/19 History fjelisjxsjb-[id number]-[id number] C-Mn 1 cap PO UD 12/25/19 12/25/19 History [Glucosamine 1500 Complex] polyethylene glycol 3350 [Miralax] 17 g PO DAILY 12/25/19 12/25/19 History Patient History Medical History Coronary artery disease History of aortic stenosis HTN (hypertension) Hyperlipidemia LDL goal <70 Parkinsons disease Surgical History H/O aortic valve replacement H/O hernia repair H/O right inguinal hernia repair (11/25/19) Laparoscopic release of SBO; Right Inguinal Recurrent Hernia Repair with Mesh Dr. Rodriguez 11/25/2019 S/P aortic aneurysm repair S/P CABG x 1 S/P hernia repair Family History Brother Hypertension Parkinson disease Social History Smoking Status: Never smoker Hx Alcohol Use: No Hx Substance Use: No Preferred Language: Kittitian Communication Ability: Effective Visual Impairment: No Limitations Hearing Ability: Normal Bar Finish Operator Required: No Beliefs That Will Affect Care: None marital status: Current Living Situation: Spouse current occupational status: retired Feels Safe at Home: Yes Childhood Exposure to Second-Hand Smoke: No Diet Comment: regular caffeine: Yes during the past year weight has: decreased > 10 lbs Dental Care, Regularly: No Physical Activity Frequency: 3-4 Times per Week Physical Activity Frequency Comment: walk Seatbelt Use: always Sunscreen Use: No (does not go out in the sun) Review of Systems Constitutional: + weakness; no fever Eyes: no problem reported Ear, Nose, Mouth, Throat: no problem reported Respiratory: no cough and no dyspnea Cardiovascular: no chest pain and no edema Gastrointestinal: no abdominal pain, no vomiting and no diarrhea/loose stools Genitourinary: + urinary hesitancy; no dysuria and no hematuria Musculoskeletal: no back pain Integumentary: no rash Neurologic: no confusion Physical Exam Constitutional: + thin and + frail appearing; not in distress Eyes: PERRL, conjunctivae normal, anicteric sclerae ENMT: external ear and nose normal, oropharynx normal Neck: trachea midline, no thyromegaly Respiratory: normal respiratory effort, lungs clear to auscultation Cardiovascular: RRR, no murmur, no edema Gastrointestinal (Abdomen): normal bowel sounds, soft, nontender, no hepatosplenomegaly Musculoskeletal: Extremities: + muscle atrophy; no cyanosis Skin: no rashes, warm and dry Neurologic: not confused Results & Data ([place]) Vital Signs (Past 12 Hours) Vital Signs Temp Pulse Resp BP Pulse Ox 12/29/19 08:02 36.3 C L 72 20 148/79 H 97 Laboratory Results Laboratory Tests 12/25/19 12/26/19 12/28/19 17:11 01:25 13:10 WBC Hgb Hct Plt Count Sodium Potassium Chloride Carbon Dioxide Glucose Calcium Magnesium Total Bilirubin 0.5 AST 26 ALT 16 Albumin 3.2 L TSH 2.340 Urine Color Urine Appearance Urine pH Ur Specific [place] Urine Protein Urine Glucose (UA) Urine Ketones Urine Blood Urine Nitrite Urine Bilirubin Urine Urobilinogen Ur Leukocyte Esterase Urine Osmolality 338 L 537 12/28/19 12/29/19 12/29/19 13:10 06:29 06:29 WBC 5.88 Hgb 10.8 L Hct 31.7 L Plt Count 338 Sodium 126 L Potassium 4.4 Chloride 93 L Carbon Dioxide 28 Glucose 79 Calcium 8.0 L Magnesium 2.0 Total Bilirubin AST ALT Albumin TSH Urine Color Yellow Urine Appearance Clear Urine pH 7.5 Ur Specific [place] 1.017 Urine Protein Negative Urine Glucose (UA) Negative Urine Ketones Negative Urine Blood Negative Urine Nitrite Negative Urine Bilirubin Negative Urine Urobilinogen Positive H Ur Leukocyte Esterase Negative Urine Osmolality PG Care Time/CCT Total # of Minutes Spent Total Time Spent with Patient: Total time spent is greater than 50% in coordination of care (as documented) at patient's floor/unit and/or counseling patient: Coding Level of Care Code 22370 Inpt Consult Level 5 Diagnoses Hyponatremia E87.1 HTN (hypertension) I10 Abnormal weight loss R63.4 Parkinsons disease G20
[2019-12-29] MEDS: SODIUM CHLORIDE 1 GM TABLET PO SCH ×2 (14:07→20:49)
[2019-12-29] MEDS: FUROSEMIDE 20 MG TAB PO SCH ×2 (14:07→18:13)
--- NOTE | 2019-12-29 14:15 | Hospitalist Progress Note ---
Date of Service December 29, 2019 Assessment & Plan (1) Hyponatremia: Na = 124 on admission. (Most recently 134 on 11/25/19.), most likely contributing to patient's weakness and gait instability. - Urine osms indicate SIADH vs. low solute given rise from IV fluids. 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 - On protein shakes & fluid restriction. Down to 126 on 12/28. - Nephrology saw him on 12/28: Will start salt tabs and Lasix, will get PSA and focal occult to check for other cancers. (2) Parkinsons disease: Has been followed by his PCP. Seen by Dr. Ruchi Aguilar of [facility] on 12/17/2019. Discussed with Dr. Quiroga on 12/25. Plan had been to start Sinemet 25mg - 100 mg 1.5 tablets PO BID for 1 week, then increase to TID if tolerating. However, he counseled NOT starting in the hospital as he feels patient should be at his considered "baseline" before starting this medication as it can have BP effects and delirium effects as well. - Hold Sinemet at this time. - He reports voiding 4-5 times overnight which is NOT new for him. PVR was only 6 mL. Likely due to autonomic dysfunction or detrusor overactivity from Parkinson's. UpToDate reports that tertiary amine anticholinergic such as solifenacin (Vesicare) may be beneficial. Trialing tolterodine 1 mg PO at night with neurology approval. (3) Aspiration into lower respiratory tract: Patient with slight cough. No overt aspiration noted by family. CT chest on admission with mucoid opacification of the bilateral lower lobe bronchi, L>R. Also L>R airspace airspace opacities within the lung bases posteriorly with a few tree-in-bud nodular opacities within the LLL. - Supplemental O2 as needed, humidified - Stop Zosyn per pulmonology - Flutter valve, IS - Aspiration precautions - Pulmonary consultation re: possible bronchoscopy -> Seen on 12/25; no need for procedure. - Speech/swallow evaluation on 12/25 felt to major aspiration concerns. Continue regular diet. (4) Hyperlipidemia: Chronic. - Continue atorvastatin 20mg po daily (5) Hypertension, benign: Patient with reported history of HTN, recently low BPs at home. Was formerly on losartan and metoprolol which have since been discontinued. BP is 140/70. - Continue to monitor -> Improving with hospital diet/supplements. 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 Stable. Patient denies chest pain. EKG with no evidence of acute ischemia. - Continue ASA 81mg po daily - Continue atorvastatin 20mg po daily - Metoprolol and losartan discontinued as above due to low blood pressures at home -> Now actually BP up to 150/80. His low BP may be poor nutrition. If his BP responds, could consider restarting. (7) History of aortic stenosis: S/p repair. - Cautious fluid management (8) DVT prophylaxis: Lovenox 30mg daily Admission and Anticipated Discharge Date Admission Date: December 25, 2019 Subjective Feeling well today. No major concerns. Reports no fevers/chills, chest pain, shortness of breath, abdominal pain, nausea, or vomiting. Physical Exam Constitutional: WD/WN, vitals as above Eyes: EOM intact bilaterally; no conjunctival abnormality ENMT: external ear and nose normal, oropharynx normal Neck: trachea midline, no thyromegaly normal visual inspection Respiratory: normal respiratory effort, lungs clear to auscultation no respiratory distress Cardiovascular: RRR, no murmur, no edema Gastrointestinal (Abdomen): Inspection/Auscultation: + abdominal surgical incision (Scant blood draining from incision; no erythema); abdomen not distended Musculoskeletal: no cyanosis or clubbing, extremities motor strength 5/5 Extremities: extremities normal to inspection (But thin) Skin: no rashes, warm and dry Neurologic: moves all extremities and awake Motor/Sensory: + tremor (Pill- rolling) and + abnormal movement (Cogwheeling rigidity) Psychiatric: Orientation: alert, oriented to person and cooperative Results & Data Results & Data ([facility]) Vital Signs (Past 12 Hours) Vital Signs Temp Pulse Resp BP Pulse Ox 12/29/19 08:02 36.3 C L 72 20 148/79 H 97 PG Care Time/CCT Total # of Minutes Spent Total Time Spent with Patient: Total time spent is greater than 50% in coordination of care (as documented) at patient's floor/unit and/or counseling patient: Coding Level of Care Code 06336 Subseq Hosp Care Lvl 3 Diagnoses Hyponatremia E87.1 Parkinsons disease G20 Aspiration into lower respiratory tract T17.800A Encounter type: initial encounter Hyperlipidemia E78.5 Hyperlipidemia type: unspecified Hypertension, benign I10 Single vessel coronary artery disease I25.10 History of aortic stenosis Z86.79 DVT prophylaxis Z29.9 (1) Aspiration into lower respiratory tract Encounter type: initial encounter Qualified Code(s): T17.800A - Unspecified foreign body in other parts of respiratory tract causing asphyxiation, initial encounter (2) Hyperlipidemia Hyperlipidemia type: unspecified Qualified Code(s): E78.5 - Hyperlipidemia, unspecified
[2019-12-29] MEDS: TOLTERODINE TARTRATE 2 MG TAB PO SCH (20:50)
[2019-12-29] MEDS: ENOXAPARIN INJ 30 MG/0.3 ML SYR SQ SCH (22:03)
[2019-12-29] MEDS: MELATONIN 3 MG TAB PO PRN (23:15)
[2019-12-30] MEDS: ACETAMINOPHEN 325 MG TAB PO SCH ×2 (07:37→20:44)
[2019-12-30] MEDS: ATORVASTATIN 20 MG TAB PO SCH (07:38)
[2019-12-30] MEDS: FUROSEMIDE 20 MG TAB PO SCH ×2 (07:39→16:32)
[2019-12-30] MEDS: guaiFENesin 600 MG TABCR PO SCH ×2 (07:40→20:45)
[2019-12-30] MEDS: SODIUM CHLORIDE 1 GM TABLET PO SCH ×2 (07:40→20:45)
[2019-12-30] MEDS: ASPIRIN 81 MG ECTAB PO SCH (07:40)
[2019-12-30 07:46] LABS: Hematocrit (blood only) 33.9 % (42-52); Mean Corpuscular Hemoglobin 30.6 pg (25-34); Mean Corpuscular Hgb Conc 32.4 g/dL (32-36); Mean Corpuscular Volume 94.2 fL (80-100); Mean Platelet Volume 9.3 fL (7.4-10.4); Platelet Count 374 K/uL (130-400); RDW Standard Deviation 45.3 fL (36.4-46.3); White Blood Count 8.45 K/uL (4.8-10.8)
[2019-12-30] MEDS: POLYETHYLENE (MIRALAX) 17 GM PACK PO SCH (07:47)
[2019-12-30 08:26] LABS: BUN Creatinine Ratio 22.1 (10-20); Calcium 8.3 mg/dl (8.5-10.1); Creatinine Clr Calc Pharmacy 77.6 ml/min; Est GFR (African American) 112.9; Est GFR (Non-African American) 97.4; Potassium 3.9 mmol/L (3.5-5.1)
[2019-12-30 08:32] LABS: Prostate Specific Antigen 1.35 ng/ml (0-4)
--- NOTE | 2019-12-30 09:22 | Nephrology Progress Note ---
Date of Service December 30, 2019 Assessment & Plan (1) Hyponatremia: * Hypoosmolar hyponatremia (calculated osmolality 262). Normal thyroid and renal function. No clinical evidence of adrenal insufficiency. No evidence of CHF or hepatic failure. No pulmonary malignancy on recent chest CT. Elevated Uosm suggestive of SIADH * Serum sodium mildly improved this am * Continue NaCl 2 g po BID * Continue Furosemide 20 mg po BID to lower Uosm * Recheck PRP, Uosm in am * Recommend health maintenance screening: PSA, FOBT, colonoscopy? if not recently completed (2) HTN (hypertension): * BP has been fairly labile * Will monitor closely following addition of NaCl and loop diuretic (3) Abnormal weight loss: * Consider health maintenance screening as noted above * Consider swallowing study (4) Parkinsons disease: * Await Neurology input Admission and Anticipated Discharge Date Admission Date: December 25, 2019 Subjective Mr. Fajardo was seen & examined in his hospital room this morning. He reports that he is tolerating NaCl supplementation and low dose loop diuretic without GI upset or muscle cramping. He voices no new medical concerns. Review of Systems Constitutional: + weakness; no fever Eyes: no problem reported Ear, Nose, Mouth, Throat: no problem reported Respiratory: no dyspnea Cardiovascular: no chest pain and no edema Gastrointestinal: no abdominal pain and no diarrhea/loose stools Genitourinary: + urinary hesitancy; no dysuria and no hematuria Musculoskeletal: no back pain Integumentary: no rash Neurologic: no dizziness Physical Exam Constitutional: + thin and + frail appearing; not in distress Eyes: PERRL, conjunctivae normal, anicteric sclerae ENMT: external ear and nose normal, oropharynx normal Neck: trachea midline, no thyromegaly Respiratory: normal respiratory effort, lungs clear to auscultation Cardiovascular: RRR, no murmur, no edema Gastrointestinal (Abdomen): normal bowel sounds, soft, nontender, no hepatosplenomegaly Musculoskeletal: Extremities: + muscle atrophy; no cyanosis Skin: no rashes, warm and dry Neurologic: not confused Results & Data ([place]) Vital Signs (Past 12 Hours) Vital Signs Temp Pulse Pulse Resp BP Pulse Ox 12/30/19 07:36 36.4 C L 63 18 102/61 90 12/29/19 23:03 36.6 C 97 H 81 19 122/74 97 Laboratory Results Laboratory Tests 12/30/19 12/30/19 07:16 07:16 WBC 8.45 Hgb 11.0 L Hct 33.9 L Plt Count 374 Sodium 127 L Potassium 3.9 Chloride 92 L Carbon Dioxide 28 Glucose 92 Laboratory Tests 12/29/19 16:18 Urine Osmolality 731 PG Care Time/CCT Total # of Minutes Spent Total Time Spent with Patient: Total time spent is greater than 50% in coordination of care (as documented) at patient's floor/unit and/or counseling patient: Coding Level of Care Code 01568 Subseq Hosp Care Lvl 3 Diagnoses Hyponatremia E87.1 HTN (hypertension) I10 Abnormal weight loss R63.4 Parkinsons disease G20
[2019-12-30] MEDS ORDERED: CYANOCOBALAMIN 1000 MCG/ML VIAL IM ONE (15:19)
[2019-12-30] MEDS: TOLTERODINE TARTRATE 2 MG TAB PO SCH (20:44)
[2019-12-30] MEDS: MELATONIN 3 MG TAB PO PRN (20:49)
--- NOTE | 2019-12-30 22:02 | Hospitalist Progress Note ---
Date of Service December 30, 2019 Assessment & Plan (1) Hyponatremia: Na = 124 on admission. (Most recently 134 on 11/25/19.), most likely contributing to patient's weakness and gait instability. - Urine osms indicate SIADH vs. low solute given rise from IV fluids. 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 - On protein shakes & fluid restriction. Down to 126 on 12/28. - Nephrology : Serum sodium mildly improved this am Continue NaCl 2 g po BID Continue Furosemide 20 mg po BID to lower Uosm Recheck PRP, Uosm in am Recommend health maintenance screening: PSA, FOBT, colonoscopy? if not recently completed will get PSA and focal occult to check for other cancers. (2) Parkinsons disease: Has been followed by his PCP. Seen by Dr. Ruchi Aguilar of [facility] on 12/17/2019. Discussed with Dr. Quiroga on 12/25. Plan had been to start Sinemet 25mg - 100 mg 1.5 tablets PO BID for 1 week, then increase to TID if tolerating. However, he counseled NOT starting in the hospital as he feels patient should be at his considered "baseline" before starting this medication as it can have BP effects and delirium effects as well. - Hold Sinemet at this time. - He reports voiding 4-5 times overnight which is NOT new for him. PVR was only 6 mL. Likely due to autonomic dysfunction or detrusor overactivity from Parkinson's. UpToDate reports that tertiary amine anticholinergic such as solifenacin (Vesicare) may be beneficial. Trialing tolterodine 1 mg PO at night with neurology approval. (3) Aspiration into lower respiratory tract: Patient with slight cough. No overt aspiration noted by family. CT chest on admission with mucoid opacification of the bilateral lower lobe bronchi, L>R. Also L>R airspace airspace opacities within the lung bases posteriorly with a few tree-in-bud nodular opacities within the LLL. - Supplemental O2 as needed, humidified - Stop Zosyn per pulmonology - Flutter valve, IS - Aspiration precautions - Pulmonary consultation re: possible bronchoscopy -> Seen on 12/25; no need for procedure. - Speech/swallow evaluation on 12/25 felt to major aspiration concerns. Continue regular diet. (4) Hyperlipidemia: Chronic. - Continue atorvastatin 20mg po daily (5) Hypertension, benign: Patient with reported history of HTN, recently low BPs at home. Was formerly on losartan and metoprolol which have since been discontinued. BP is 140/70. - Continue to monitor -> Improving with hospital diet/supplements. 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 Stable. Patient denies chest pain. EKG with no evidence of acute ischemia. - Continue ASA 81mg po daily - Continue atorvastatin 20mg po daily - Metoprolol and losartan discontinued as above due to low blood pressures at home -> Now actually BP up to 150/80. His low BP may be poor nutrition. If his BP responds, could consider restarting. (7) History of aortic stenosis: S/p repair. - Cautious fluid management (8) DVT prophylaxis: Lovenox 30mg daily Admission and Anticipated Discharge Date Admission Date: December 25, 2019 Subjective 89 yo male reports no new symptoms today. Review of Systems Review of Systems: All systems reviewed & are unremarkable except as noted in HPI & below Physical Exam Physical Exam: Constitutional: WD/WN, vitals as above Eyes: EOM intact bilaterally; no conjunctival abnormality ENMT: external ear and nose normal, oropharynx normal Neck: trachea midline, no thyromegaly normal visual inspection Respiratory: normal respiratory effort, lungs clear to auscultation no respiratory distress Cardiovascular: RRR, no murmur, no edema Gastrointestinal (Abdomen): Inspection/Auscultation: + abdominal surgical incision (Scant blood draining from incision; no erythema); abdomen not distended Musculoskeletal: no cyanosis or clubbing, extremities motor strength 5/5 Extremities: extremities normal to inspection (But thin) Skin: no rashes, warm and dry Neurologic: moves all extremities and awake Motor/Sensory: + tremor (Pill- rolling) and + abnormal movement (Cogwheeling rigidity) Psychiatric: Orientation: alert, oriented to person and cooperative Results & Data Results & Data ([facility]) Vital Signs (Past 12 Hours) Vital Signs Temp Pulse Resp BP Pulse Ox 12/30/19 15:00 36.6 C 76 16 102/66 100 12/30/19 13:01 36.3 C L 81 18 107/65 95 PG Care Time/CCT Total # of Minutes Spent Total Time Spent with Patient: Total time spent is greater than 50% in coordination of care (as documented) at patient's floor/unit and/or counseling patient: Coding Level of Care Code 21252 Subseq Hosp Care Lvl 3 Diagnoses Hyponatremia E87.1 Parkinsons disease G20 Aspiration into lower respiratory tract T17.800A Encounter type: initial encounter Hyperlipidemia E78.5 Hyperlipidemia type: unspecified Hypertension, benign I10 Single vessel coronary artery disease I25.10 History of aortic stenosis Z86.79 DVT prophylaxis Z29.9 Time Spent (min) 35 Comment chart review (1) Aspiration into lower respiratory tract Encounter type: initial encounter Qualified Code(s): T17.800A - Unspecified foreign body in other parts of respiratory tract causing asphyxiation, initial encounter (2) Hyperlipidemia Hyperlipidemia type: unspecified Qualified Code(s): E78.5 - Hyperlipidemia, unspecified
[2019-12-30] MEDS: ENOXAPARIN INJ 30 MG/0.3 ML SYR SQ SCH (22:53)
[2019-12-31 07:46] LABS: BUN Creatinine Ratio 27.4 (10-20); Calcium 8.7 mg/dl (8.5-10.1); Creatinine Clr Calc Pharmacy 73.2 ml/min; Est GFR (African American) 110.3; Est GFR (Non-African American) 95.1; Potassium 4.1 mmol/L (3.5-5.1)
[2019-12-31] MEDS: SODIUM CHLORIDE 1 GM TABLET PO SCH ×2 (08:55→20:18)
[2019-12-31] MEDS: ATORVASTATIN 20 MG TAB PO SCH (08:55)
[2019-12-31] MEDS: FUROSEMIDE 20 MG TAB PO SCH ×2 (08:55→16:37)
[2019-12-31] MEDS: ASPIRIN 81 MG ECTAB PO SCH (08:55)
[2019-12-31] MEDS: guaiFENesin 600 MG TABCR PO SCH ×2 (08:55→20:19)
[2019-12-31] MEDS: ACETAMINOPHEN 325 MG TAB PO SCH ×2 (08:58→20:21)
[2019-12-31] MEDS: POLYETHYLENE (MIRALAX) 17 GM PACK PO SCH (09:12)
--- NOTE | 2019-12-31 11:45 | Nephrology Progress Note ---
Date of Service December 31, 2019 Assessment & Plan (1) Hyponatremia: * Hypoosmolar hyponatremia. Normal thyroid and renal function. No clinical evidence of adrenal insufficiency. No evidence of CHF or hepatic failure. No pulmonary malignancy on recent chest CT. 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 Quach in the clinic within 2 weeks of discharge * Plan of care was reviewed with Dr. Murillo this AM (2) HTN (hypertension): * BP acceptable * Will monitor closely following addition of NaCl and loop diuretic (3) Abnormal weight loss: * Follow up with PCP (4) Parkinsons disease: Admission and Anticipated Discharge Date Admission Date: December 25, 2019 Subjective No acute events overnight. Adonis feels well this morning. Appetite is good. Tolerating oral NaCl and furosemide well. Hopes to be discharged today. Review of Systems Review of Systems: All systems reviewed & are unremarkable except as noted in HPI & below Physical Exam Constitutional: well developed, + thin and + frail appearing; no acute distress Eyes: no scleral abnormality and no corneal abnormality ENMT: Mouth: no oral mucosal abnormality and oral mucous membranes not dry Neck: normal visual inspection and trachea midline Respiratory: normal respiratory effort Auscultation: lungs clear to auscultation bilaterally Cardiovascular: Rate/Rhythm: regular rate Heart Sounds: normal S1 and norm al S2 Extremities: no edema Musculoskeletal: Extremities: no cyanosis and no clubbing Skin: normal turgor; no lesions Neurologic: Motor/Sensory: no tremor and no asterixis Psychiatric: Orientation: alert and oriented x 3 Results & Data ([facility]) Vital Signs (Past 12 Hours) Vital Signs Temp Pulse Resp BP Pulse Ox 12/31/19 07:15 36.5 C 73 16 119/72 96 Laboratory Results Laboratory Results - last 24 hr 12/30/19 12/30/19 12/31/19 07:16 23:00 06:35 Sodium 128 L Potassium 4.1 Chloride 93 L Carbon Dioxide 29 Anion Gap 6.0 BUN 15 Creatinine 0.53 L Est Cr Clr Drug Dosing 73.2 Est GFR ( Amer) 110.3 Est GFR (Non-Af Amer) 95.1 BUN/Creatinine Ratio 27.4 H Glucose 82 Calcium 8.7 Vitamin B12 217 Urine Osmolality 726 PG Care Time/CCT Total # of Minutes Spent Total Time Spent with Patient: Total time spent is greater than 50% in coordination of care (as documented) at patient's floor/unit and/or counseling patient: Coding Level of Care Code 77903 Subseq Hosp Care Lvl 3 Diagnoses Hyponatremia E87.1 HTN (hypertension) I10 Abnormal weight loss R63.4 Parkinsons disease G20
[2019-12-31] MEDS: MELATONIN 3 MG TAB PO PRN (20:18)
[2019-12-31] MEDS: ENOXAPARIN INJ 30 MG/0.3 ML SYR SQ SCH (20:19)
[2019-12-31] MEDS: TOLTERODINE TARTRATE 2 MG TAB PO SCH (20:19)
--- NOTE | 2019-12-31 22:08 | Hospitalist Progress Note ---
Date of Service December 31, 2019 Assessment & Plan (1) Hyponatremia: Na = 124 on admission. (Most recently 134 on 11/25/19.), most likely contributing to patient's weakness and gait instability. - Urine osms indicate SIADH vs. low solute given rise from IV fluids. 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 - On protein shakes & fluid restriction. UP to 128 on 12/30. - Nephrology : Serum sodium mildly improved this am Continue NaCl 2 g po BID Continue Furosemide 20 mg po BID to lower Uosm Recheck PRP, Uosm in am Recommend health maintenance screening: PSA, FOBT, colonoscopy? if not recently completed will get PSA and focal occult to check for other cancers. (2) Parkinsons disease: Has been followed by his PCP. Seen by Dr. Ruchi Aguilar of [facility] on 12/17/2019. Discussed with Dr. Quiroga on 12/25. Plan had been to start Sinemet 25mg - 100 mg 1.5 tablets PO BID for 1 week, then increase to TID if tolerating. However, he counseled NOT starting in the hospital as he feels patient should be at his considered "baseline" before starting this medication as it can have BP effects and delirium effects as well. - Hold Sinemet at this time. - He reports voiding 4-5 times overnight which is NOT new for him. PVR was only 6 mL. Likely due to autonomic dysfunction or detrusor overactivity from Parkinson's. UpToDate reports that tertiary amine anticholinergic such as solifenacin (Vesicare) may be beneficial. Trialing tolterodine 1 mg PO at night with neurology approval. (3) Aspiration into lower respiratory tract: Patient with slight cough. No overt aspiration noted by family. CT chest on admission with mucoid opacification of the bilateral lower lobe bronchi, L>R. Also L>R airspace airspace opacities within the lung bases posteriorly with a few tree-in-bud nodular opacities within the LLL. - Supplemental O2 as needed, humidified - Stop Zosyn per pulmonology - Flutter valve, IS - Aspiration precautions - Pulmonary consultation re: possible bronchoscopy -> Seen on 12/25; no need for procedure. - Speech/swallow evaluation on 12/25 felt to major aspiration concerns. Continue regular diet. (4) Hyperlipidemia: Chronic. - Continue atorvastatin 20mg po daily (5) Hypertension, benign: Patient with reported history of HTN, recently low BPs at home. Was formerly on losartan and metoprolol which have since been discontinued. BP is 140/70. - Continue to monitor -> Improving with hospital diet/supplements. 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 Stable. Patient denies chest pain. EKG with no evidence of acute ischemia. - Continue ASA 81mg po daily - Continue atorvastatin 20mg po daily - Metoprolol and losartan discontinued as above due to low blood pressures at home -> Now actually BP up to 150/80. His low BP may be poor nutrition. If his BP responds, could consider restarting. (7) History of aortic stenosis: S/p repair. - Cautious fluid management (8) DVT prophylaxis: Lovenox 30mg daily Admission and Anticipated Discharge Date Admission Date: December 25, 2019 Subjective Patient reports no new symptoms. Review of Systems Review of Systems: All systems reviewed & are unremarkable except as noted in HPI & below Physical Exam Physical Exam: Constitutional: WD/WN, vitals as above Eyes: EOM intact bilaterally; no conjunctival abnormality ENMT: external ear and nose normal, oropharynx normal Neck: trachea midline, no thyromegaly normal visual inspection Respiratory: normal respiratory effort, lungs clear to auscultation no respiratory distress Cardiovascular: RRR, no murmur, no edema Gastrointestinal (Abdomen): Inspection/Auscultation: + abdominal surgical incision (Scant blood draining from incision; no erythema); abdomen not distend ed Musculoskeletal: no cyanosis or clubbing, extremities motor strength 5/5 Extremities: extremities normal to inspection (But thin) Skin: no rashes, warm and dry Neurologic: moves all extremities and awake Motor/Sensory: + tremor (Pill- rolling) and + abnormal movement (Cogwheeling rigidity) Psychiatric: Orientation: alert, oriented to person and cooperative Results & Data Results & Data ([facility]) Vital Signs (Past 12 Hours) Vital Signs Temp Pulse Resp BP Pulse Ox 12/31/19 19:40 36.8 C 89 18 120/83 97 12/31/19 15:23 36.5 C 70 16 100/57 L 95 PG Care Time/CCT Total # of Minutes Spent Total Time Spent with Patient: Total time spent is greater than 50% in coordination of care (as documented) at patient's floor/unit and/or counseling patient: Coding Level of Care Code 18406 Subseq Hosp Care Lvl 2 Diagnoses Hyponatremia E87.1 Parkinsons disease G20 Aspiration into lower respiratory tract T17.800A Encounter type: initial encounter Hyperlipidemia E78.5 Hyperlipidemia type: unspecified Hypertension, benign I10 Single vessel coronary artery disease I25.10 History of aortic stenosis Z86.79 DVT prophylaxis Z29.9 Time Spent (min) 25 (1) Aspiration into lower respiratory tract Encounter type: initial encounter Qualified Code(s): T17.800A - Unspecified foreign body in other parts of respiratory tract causing asphyxiation, initial encounter (2) Hyperlipidemia Hyperlipidemia type: unspecified Qualified Code(s): E78.5 - Hyperlipidemia, unspecified
[2020-01-01 08:02] LABS: Albumin Level 2.7 gm/dl (3.4-5.0); BUN Creatinine Ratio 36.7 (10-20); Calcium 8.1 mg/dl (8.5-10.1); Creatinine Clr Calc Pharmacy 82.5 ml/min; Est GFR (African American) 115.8; Est GFR (Non-African American) 99.9; Phosphorus 3.2 mg/dl (2.5-4.9)
[2020-01-01] MEDS: POLYETHYLENE (MIRALAX) 17 GM PACK PO SCH (08:10)
[2020-01-01] MEDS: guaiFENesin 600 MG TABCR PO SCH ×2 (08:11→20:41)
[2020-01-01] MEDS: ATORVASTATIN 20 MG TAB PO SCH (08:11)
[2020-01-01] MEDS: ASPIRIN 81 MG ECTAB PO SCH (08:11)
[2020-01-01] MEDS: SODIUM CHLORIDE 1 GM TABLET PO SCH ×2 (08:11→20:41)
[2020-01-01] MEDS: FUROSEMIDE 20 MG TAB PO SCH ×2 (08:11→17:10)
[2020-01-01] MEDS: ACETAMINOPHEN 325 MG TAB PO SCH ×2 (08:14→20:46)
--- NOTE | 2020-01-01 09:32 | Nephrology Progress Note ---
Date of Service January 01, 2020 Assessment & Plan (1) Hyponatremia: * Hypoosmolar hyponatremia. Normal thyroid and renal function. No clinical evidence of adrenal insufficiency. No evidence of CHF or hepatic failure. No pulmonary malignancy on recent chest CT. 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 Quach in the clinic within 2 weeks of discharge (2) HTN (hypertension): * BP acceptable * Will monitor closely following addition of NaCl and loop diuretic (3) Abnormal weight loss: * Encourage protein supplements (4) Parkinsons disease: Admission and Anticipated Discharge Date Admission Date: December 25, 2019 Subjective No acute events overnight. Adonis feels well this morning. Appetite is good. Tolerating oral NaCl and furosemide well. Hopes to be discharged today. Review of Systems Review of Systems: All systems reviewed & are unremarkable except as noted in HPI & below Physical Exam Constitutional: well developed, + thin and + frail appearing; no acute distress Eyes: no scleral abnormality and no corneal abnormality ENMT: Mouth: no oral mucosal abnormality and oral mucous membranes not dry Neck: normal visual inspection and trachea midline Respiratory: normal respiratory effort Auscultation: lungs clear to auscultation bilaterally Cardiovascular: Rate/Rhythm: regular rate Heart Sounds: normal S1 and normal S2 Extremities: no edema Musculoskeletal: Extremities: no cyanosis and no clubbing Skin: normal turgor; no lesions Neurologic: Motor/Sensory: no tremor and no asterixis Psychiatric: Orientation: alert and oriented x 3 Results & Data ([facility]) Vital Signs (Past 12 Hours) Vital Signs Temp Pulse Resp BP Pulse Ox 01/01/20 08:20 36.5 C 64 18 122/74 98 01/01/20 02:55 36.5 C 70 17 132/75 96 01/01/20 00:11 36.6 C 75 19 121/70 94 Laboratory Results Laboratory Results - last 24 hr 01/01/20 07:15 Sodium 127 L Potassium 4.0 Chloride 93 L Carbon Dioxide 28 Anion Gap 6.0 BUN 17 Creatinine 0.47 L Est Cr Clr Drug Dosing 82.5 Est GFR ( Amer) 115.8 Est GFR (Non-Af Amer) 99.9 BUN/Creatinine Ratio 36.7 H Glucose 81 Calcium 8.1 L Phosphorus 3.2 Albumin 2.7 L PG Care Time/CCT Total # of Minutes Spent Total Time Spent with Patient: Total time spent is greater than 50% in coordination of care (as documented) at patient's floor/unit and/or counseling patient: Coding Level of Care Code 57169 Subseq Hosp Care Lvl 3 Diagnoses Hyponatremia E87.1 HTN (hypertension) I10 Abnormal weight loss R63.4 Parkinsons disease G20
[2020-01-01] MEDS: TOLTERODINE TARTRATE 2 MG TAB PO SCH (20:42)
[2020-01-01] MEDS: MELATONIN 3 MG TAB PO PRN (20:46)
--- NOTE | 2020-01-01 21:54 | Hospitalist Progress Note ---
Date of Service January 01, 2020 Assessment & Plan (1) Hyponatremia: Na = 124 on admission. (Most recently 134 on 11/25/19.), most likely contributing to patient's weakness and gait instability. - Urine osms indicate SIADH vs. low solute given rise from IV fluids. 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 - On protein shakes & fluid restriction. UP to 128 on 12/30. - Nephrology : Serum sodium at 127 Continue NaCl 2 g po BID Continue Furosemide 20 mg po BID to lower Uosm Recommend health maintenance screening: PSA, FOBT, colonoscopy? if not recently completed will get PSA and focal occult to check for other cancers. (2) Parkinsons disease: Has been followed by his PCP. Seen by Dr. Ruchi Aguilar of [facility] on 12/17/2019. Discussed with Dr. Quiroga on 12/25. Plan had been to start Sinemet 25mg - 100 mg 1.5 tablets PO BID for 1 week, then increase to TID if tolerating. However, he counseled NOT starting in the hospital as he feels patient should be at his considered "baseline" before starting this medication as it can have BP effects and delirium effects as well. -ok to start sinemet in AM. - He reports voiding 4-5 times overnight which is NOT new for him. PVR was only 6 mL. Likely due to autonomic dysfunction or detrusor overactivity from Parkinson's. UpToDate reports that tertiary amine anticholinergic such as solifenacin (Vesicare) may be beneficial. Trialing tolterodine 1 mg PO at night with neurology approval. (3) Aspiration into lower respiratory tract: Patient with slight cough. No overt aspiration noted by family. CT chest on admission with mucoid opacification of the bilateral lower lobe bronchi, L>R. Also L>R airspace airspace opacities within the lung bases posteriorly with a few tree-in-bud nodular opacities within the LLL. - Supplemental O2 as needed, humidified - Stop Zosyn per pulmonology - Flutter valve, IS - Aspiration precautions - Pulmonary consultation re: possible bronchoscopy -> Seen on 12/25; no need for procedure. - Speech/swallow evaluation on 12/25 felt to major aspiration concerns. Continue regular diet. (4) Hyperlipidemia: Chronic. - Continue atorvastatin 20mg po daily (5) Hypertension, benign: Patient with reported history of HTN, recently low BPs at home. Was formerly on losartan and metoprolol which have since been discontinued. BP is 140/70. - Continue to monitor -> Improving with hospital diet/supplements. 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 Stable. Patient denies chest pain. EKG with no evidence of acute ischemia. - Continue ASA 81mg po daily - Continue atorvastatin 20mg po daily - Metoprolol and losartan discontinued as above due to low blood pressures at home -> Now actually BP up to 150/80. His low BP may be poor nutrition. If his BP responds, could consider restarting. (7) History of aortic stenosis: S/p repair. - Cautious fluid management (8) DVT prophylaxis: Lovenox 30mg daily Admission and Anticipated Discharge Date Admission Date: December 25, 2019 Subjective Patient reports no new symptoms today. Review of Systems Review of Systems: All systems reviewed & are unremarkable except as noted in HPI & below Physical Exam Physical Exam: Constitutional: WD/WN, vitals as above Eyes: EOM intact bilaterally; no conjunctival abnormality ENMT: external ear and nose normal, oropharynx normal Neck: trachea midline, no thyromegaly normal visual inspection Respiratory: normal respiratory effort, lungs clear to auscultation no respiratory distress Cardiovascular: RRR, no murmur, no edema Gastrointestinal (Abdomen): Inspection/Auscultation: + abdominal surgical incision; abdomen not distended Musculoskeletal: no cyanosis or clubbing, extremities motor strength 5/5 Extremities: extremities normal to inspection (But thin) Skin: no rashes, warm and dry Neurologic: moves all extremities and awake Motor/Sensory: + tremor (Pill- rolling) and + abnormal movement (Cogwheeling rigidity) Psychiatric: Orientation: alert, oriented to person and cooperative Results & Data Results & Data ([facility]) Vital Signs (Past 12 Hours) Vital Signs Temp Pulse Resp BP Pulse Ox 01/01/20 15:53 36.5 C 76 18 103/59 L 96 PG Care Time/CCT Total # of Minutes Spent Total Time Spent with Patient: Total time spent is greater than 50% in coordination of care (as documented) at patient's floor/unit and/or counseling patient: Coding Level of Care Code 20654 Subseq Hosp Care Lvl 2 Diagnoses Hyponatremia E87.1 Parkinsons disease G20 Aspiration into lower respiratory tract T17.800A Encounter type: initial encounter Hyperlipidemia E78.5 Hyperlipidemia type: unspecified Hypertension, benign I10 Single vessel coronary artery disease I25.10 History of aortic stenosis Z86.79 DVT prophylaxis Z29.9 Time Spent (min) 25 (1) Aspiration into lower respiratory tract Encounter type: initial encounter Qualified Code(s): T17.800A - Unspecified foreign body in other parts of respiratory tract causing asphyxiation, initial encounter (2) Hyperlipidemia Hyperlipidemia type: unspecified Qualified Code(s): E78.5 - Hyperlipidemia, unspecified
[2020-01-01] MEDS: ENOXAPARIN INJ 30 MG/0.3 ML SYR SQ SCH (22:15)
[2020-01-02 07:51] LABS: BUN Creatinine Ratio 31.1 (10-20); Calcium 8.3 mg/dl (8.5-10.1); Creatinine Clr Calc Pharmacy 77.6 ml/min; Est GFR (African American) 112.9; Est GFR (Non-African American) 97.4; Potassium 4.5 mmol/L (3.5-5.1)
[2020-01-02] MEDS: guaiFENesin 600 MG TABCR PO SCH ×2 (08:37→08:38)
[2020-01-02] MEDS: ATORVASTATIN 20 MG TAB PO SCH (08:38)
[2020-01-02] MEDS: ACETAMINOPHEN 325 MG TAB PO SCH (08:38)
[2020-01-02] MEDS: FUROSEMIDE 20 MG TAB PO SCH (08:38)
[2020-01-02] MEDS: SODIUM CHLORIDE 1 GM TABLET PO SCH (08:38)
[2020-01-02] MEDS: ASPIRIN 81 MG ECTAB PO SCH (08:38)
[2020-01-02] MEDS: POLYETHYLENE (MIRALAX) 17 GM PACK PO SCH (08:41)
--- NOTE | 2020-01-02 09:33 | Nephrology Progress Note ---
Date of Service January 02, 2020 Assessment & Plan (1) Hyponatremia: * Consistent with SIADH * Serum sodium stable at 128 mmol/L * Continue NaCl 2 g po BID * Furosemide 10 mg twice daily * Recheck PRP within 1 week of discharge and fax results to nephrology at [phone] * Follow up with Dr. Quach in the clinic within 2 weeks of discharge (2) HTN (hypertension): * BP acceptable * Will monitor closely following addition of NaCl and loop diuretic (3) Abnormal weight loss: * Encourage protein supplements (4) Parkinsons disease: Admission and Anticipated Discharge Date Admission Date: December 25, 2019 Subjective No acute events overnight. Ambulating in the crook with PT when seen this AM. No acute complaints. Review of Systems Review of Systems: All systems reviewed & are unremarkable except as noted in HPI & below Physical Exam Constitutional: well developed, + thin and + frail appearing; no acute distress Eyes: no scleral abnormality and no corneal abnormality ENMT: Mouth: no oral mucosal abnormality and oral mucous membranes not dry Neck: normal visual inspection and trachea midline Respiratory: normal respiratory effort Auscultation: lungs clear to auscultation bilaterally Cardiovascular: Rate/Rhythm: regular rate Heart Sounds: normal S1 and normal S2 Extremities: no edema Musculoskeletal: Extremities: no cyanosis and no clubbing Skin: normal turgor; no lesions Neurologic: Motor/Sensory: no tremor and no asterixis Psychiatric: Orientation: alert and oriented x 3 Results & Data ([facility]) Vital Signs (Past 12 Hours) Vital Signs Temp Pulse Resp BP Pulse Ox 01/02/20 07:43 36.7 C 80 18 119/70 99 01/01/20 22:46 36.7 C 77 18 103/58 L 98 Laboratory Results Laboratory Results - last 24 hr 01/02/20 01/02/20 01/02/20 07:01 Unknown Unknown Sodium 128 L Potassium 4.5 Chloride 93 L Carbon Dioxide 30 Anion Gap 5.0 BUN 16 Creatinine 0.50 L Est Cr Clr Drug Dosing 77.6 Est GFR ( Amer) 112.9 Est GFR (Non-Af Amer) 97.4 BUN/Creatinine Ratio 31.1 H Glucose 80 Calcium 8.3 L COVID-19 Eval Order Covid19 Done at [facility] COVID-19 PCR NEGATIVE PG Care Time/CCT Total # of Minutes Spent Total Time Spent with Patient: Total time spent is greater than 50% in coordinat ion of care (as documented) at patient's floor/unit and/or counseling patient: Coding Level of Care Code 55471 Subseq Hosp Care Lvl 3 Diagnoses Hyponatremia E87.1 HTN (hypertension) I10 Abnormal weight loss R63.4 Parkinsons disease G20
[2020-01-02] MEDS ORDERED: CARBIDOPA/LEVODOPA 25/100MG TAB PO SCH (10:30)
--- NOTE | 2020-01-09 10:51 | Discharge Summary ---
Date of Service January 02, 2020 Admission HPI Per Admitting Provider Zhou Fajardo is a pleasant 89yo C male with history of CAD s/p CABG x 1V, HTN/HLP, Parkinson's disease and aortic stenosis. Patient was recently admitted for SBO secondary to incarcerated right inguinal hernia. He had laparoscopic repair with mesh placement performed by Dr. Rodriguez on 11/26/19. Surgery was well tolerated with no complications. Patient was discharged home in stable condition on 11/27/19. The patient had a hematoma near midline incision which has been resolving. He was seen in followup with General Surgery on 12/04/19. Patient has been having progressive weakness, gait instability and falls over the last few days. His family reports weight loss of 6 pounds over the last few weeks (119# -> 113#), poor appetite. He has also been having low blood pressure, family reports 90s/50's at home. His home antihypertensives were recently discontinued due to low BPs. Patient has been coughing as well. Nonproductive. He denies CP/SOB/wheeze. Denies fevers/chills sweats. Denies abdominal pain/nausea/vomiting/diarrhea. He has some baseline constipation as well as possible urinary retention. Occasional coughing with meals. NO additional complaints at this time. ER Course: Ampicillin/Sulbactam x 3gm IV, NSS x 1L at 125mL/hr Principal Diagnosis hyponatremia Discharge Exam Constitutional: WD/WN, vitals as above Eyes: EOM intact bilaterally; no conjunctival abnormality ENMT: external ear and nose normal, oropharynx normal Neck: trachea midline, no thyromegaly normal visual inspection Respiratory: normal respiratory effort, lungs clear to auscultation no respiratory distress Cardiovascular: RRR, no murmur, no edema Gastrointestinal (Abdomen): Inspection/Auscultation: + abdominal surgical incision; abdomen not distended Musculoskeletal: no cyanosis or clubbing, extremities motor strength 5/5 Extremities: extremities normal to inspection (But thin) Skin: no rashes, warm and dry Neurologic: moves all extremities and awake Motor/Sensory: + tremor (Pill- rolling) and + abnormal movement (Cogwheeling rigidity) Psychiatric: Orientation: alert, oriented to person and cooperative Discharge Data Allergies Allergy/AdvReac Type Severity Reaction Status Date / Time No Known Allergies Allergy Verified 12/25/19 20:06 Consultations 12/25/19 22:12 Consult Case Management - Discharge Planning Routine Consult Pulmonology Routine 12/29/19 09:43 Consult Nephrology Routine Ordered Studies 12/25/19 18:35 CT chest wo con Stat Hospital Course (1) Hyponatremia: Na = 124 on admission. (Most recently 134 on 11/25/19.), most likely contributing to patient's weakness and gait instability. - Urine osms indicate SIADH vs. low solute given rise from IV fluids. 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 - On protein shakes & fluid restriction. UP to 128 on 12/30. - Nephrology : Consistent with SIADH Serum sodium stable at 128 mmol/L Continue NaCl 2 g po BID Furosemide 10 mg twice daily Recheck PRP within 1 week of discharge and fax results to nephrology at [phone] Quach in the clinic within 2 weeks of discharge Recommend health maintenance screening: PSA, FOBT, colonoscopy? if not recently completed (2) Parkinsons disease: Has been followed by his PCP. Seen by Dr. Ruchi Aguilar of [facility] on 12/17/2019. Discussed with Dr. Quiroga on 12/25. Plan had been to start Sinemet 25mg - 100 mg 1.5 tablets PO BID for 1 week, then increase to TID if tolerating. However, he counseled NOT starting in the hospital as he feels patient should be at his considered "baseline" before starting this medication as it can have BP effects and delirium effects as well. -ok to start sinemet in AM. - He reports voiding 4-5 times overnight which is NOT new for him. PVR was only 6 mL. Likely due to autonomic dysfunction or detrusor overactivity from Parkinson's. [employer]To[employer] reports that tertiary amine anticholinergic such as solifenacin (Vesicare) may be beneficial. Trialing tolterodine 1 mg PO at night with neurology approval. (3) Aspiration into lower respiratory tract: Patient with slight cough. No overt aspiration noted by family. CT chest on admission with mucoid opacification of the bilateral lower lobe bronchi, L>R. Also L>R airspace airspace opacities within the lung bases posteriorly with a few tree-in-bud nodular opacities within the LLL. - Supplemental O2 as needed, humidified - Stop Zosyn per pulmonology - Flutter valve, IS - Aspiration precautions - Pulmonary consultation re: possible bronchoscopy -> Seen on 12/25; no need for procedure. - Speech/swallow evaluation on 12/25 felt to major aspiration concerns. Continue regular diet. (4) Hyperlipidemia: Chronic. - Continue atorvastatin 20mg po daily (5) Hypertension, benign: Patient with reported history of HTN, recently low BPs at home. Was formerly on losartan and metoprolol which have since been discontinued. BP is 140/70. - Continue to monitor -> Improving with hospital diet/supplements. 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 Stable. Patient denies chest pain. EKG with no evidence of acute ischemia. - Continue ASA 81mg po daily - Continue atorvastatin 20mg po daily - Metoprolol and losartan discontinued as above due to low blood pressures at home -> Now actually BP up to 150/80. His low BP may be poor nutrition. If his BP responds, could consider restarting. (7) History of aortic stenosis: S/p repair. - Cautious fluid management (8) DVT prophylaxis: Lovenox 30mg daily Total Time Total Time Spent Total Time Spent (In Minutes): 32 Total Time Includes: Examination of the Patient, Discharge Planning and Medication Reconciliation Discharge Plan Discharge Items Patient Disposition: Transfer Detention Fac Reason For Visit: WEAKNESS, HYPONATREMIA Discharge Diagnosis: hyponatremia SIADH Activity: Resume your previous activity Non-emergency contact: Primary Care Provider Call non-emergency contact if: you have any medication questions Follow-up/Referrals: Fabio Melara MD [Primary Care Provider] - Diet: Regular Fluids: 1500ml (6 cups) Addtl Attending Provider Instructions: In regards to SIADH Serum sodium stable at 128 mmol/L Continue NaCl 2 g po BID Furosemide 10 mg twice daily Recheck PRP within 1 week of discharge and fax results to nephrology at [phone] Quach in the clinic within 2 weeks of discharge Start sinemet 25/100 bid x 5 days then tid with meals with ongoing orthostatic bp monitoring. Folloowup with Neurology [facility] in 2-4 weeks. Pending Studies at Discharge: No Stand-Alone Forms: My [facility] Skilled Items Patient informed of condition?: Yes DNR: No Discharge Level of Care: Skilled Communicable Disease: No Discharge Prognosis: Stable Lines: None Urinary Catheter: No Medications and DC Order Prescriptions: New sodium chloride 1 gram Tablet 2 g PO BID Qty: 60 RF: 0 melatonin 3 mg Tablet 3 mg PO HS PRN (Reason: insomnia) Qty: 30 RF: 0 tolterodine [Detrol] 2 mg Tablet 2 mg PO HS Qty: 30 RF: 0 furosemide 20 mg Tablet 10 mg PO BID17 Qty: 60 RF: 0 carbidopa-levodopa 25-100 mg Tablet 1 tab PO BID Qty: 60 RF: 0 guaifenesin [Mucinex] 600 mg Tablet Extended Release 12hr 1,200 mg PO Q12 PRN (Reason: COUGH) Qty: 60 RF: 0 Continued aspirin 81 mg tablet,delayed release (DR/EC) 81 mg PO DAILY RF: 0 atorvastatin 20 mg tablet 20 mg PO DAILY RF: 0 acetaminophen [Tylenol] 325 mg Tablet 650 mg PO BID RF: 0 betamethasone dipropionate 0.05 % Cream 1 applic TOPICAL BID PRN (Reason: ITCHY SPOTS) RF: 0 polyethylene glycol 3350 [Miralax] 17 gram/dose Powder 17 g PO DAILY RF: 0 bisacodyl 5 mg Tablet 5 mg PO DAILY PRN (Reason: Constipation) RF: 0 [id number]-fow C-Mn 500-400 mg Capsule 1 cap PO UD RF: 0 Discharge Orders: Discharge Order (Routine); Ordered 01/02/20 Ordered By: Kenneth Murillo Admission Data Admit Date/Time: 12/25/19 20:42 Attending Provider: Kenneth Murillo Admit Provider: Elvira Drake Primary Care Provider: Fabio Melara Other Providers: Alex Tamez ; Christi Blevins [place] ; John Quach Coding Level of Care Code D/C Day Management >30 mins Diagnoses Hyponatremia E87.1 Parkinsons disease G20 Aspiration into lower respiratory tract T17.800A Encounter type: initial encounter Hyperlipidemia E78.5 Hyperlipidemia type: unspecified Hypertension, benign I10 Single vessel coronary artery disease I25.10 History of aortic stenosis Z86.79 DVT prophylaxis Z29.9 Time Spent (min) 32
== END 2020-01-02 12:48 | DRG 644 ==
LOC: ED 16:42 → 3E 20:42 → SUATTDRO 20:42 → 3E 21:54 → 2N 12-26 12:15